=== PATIENT | female | born 1970 | race Caucasian/White ===

== ENCOUNTER 2017-08-24 08:24 | Inpatient (IN) | payer BC, OTHER ==
[2017-08-24 10:24] LABS: ADD MAN DIFF? NO
[2017-08-24 10:28] LABS: WHITE BLOOD COUNT 15.1 10^3/ul (4.8-10.8)
[2017-08-24 10:28] LABS: BASOPHIL # 0.1 10^3/ul (0.0-0.1); BASOPHILS % 0.3 % (0.0-2.0); EOSINOPHILS % 0.3 % (0.0-7.0); HEMATOCRIT 28.3 % (37.0-47.0); HEMOGLOBIN 9.8 g/dl (12.0-16.0); LYMPHOCYTES # 1.2 10^3/ul (0.8-2.9); LYMPHOCYTES % 7.6 % (15.0-51.0); MEAN CORPUSCULAR HEMOGLOBIN 36.7 pg (29.0-33.0); MEAN CORPUSCULAR HGB CONC 34.6 g/dl (32.0-37.0); MEAN PLATELET VOLUME 9.4 fl (7.4-10.4); MONOCYTE # 0.9 10^3/ul (0.3-0.9); MONOCYTES % 5.9 % (0.0-11.0); NEUTROPHIL # 12.9 10^3/ul (1.6-7.5); NEUTROPHILS % 85.3 % (39.0-77.0); PLATELET COUNT 471 10^3/UL (140-415); RED BLOOD COUNT 2.67 10^6/ul (4.20-5.40); RED CELL DISTRIBUTION WIDTH 15.5 % (11.5-14.5)
[2017-08-24] MEDS: PANTOPRAZOLE 40 MG INJ IV (10:41)
[2017-08-24 10:46] LABS: ALANINE AMINOTRANSFERASE 50 IU/L (13-69); ALBUMIN 3.1 g/dl (3.3-4.9); ALBUMIN/GLOBULIN RATIO 0.81; ALKALINE PHOSPHATASE 302 IU/L (42-121); ANION GAP 15 (8-16); ASPARTATE AMINO TRANSFERASE 159 IU/L (15-46); BILIRUBIN,INDIRECT 1.6 mg/dl (0-1.1); BILIRUBIN,TOTAL 2.2 mg/dl (0.2-1.3); BLOOD UREA NITROGEN 4 mg/dl (7-20); CALCIUM 8.5 mg/dl (8.4-10.2); CARBON DIOXIDE 36 mmol/L (21-31); CHLORIDE 86 mmol/L (97-110); GLUCOSE 117 mg/dl (70-220); LIPASE 105 U/L (23-300); SODIUM 134 mmol/L (135-144); TOTAL PROTEIN 6.9 g/dl (6.1-8.1)
[2017-08-24 10:47] LABS: INR 1.09; PROTIME 14.3 Sec (11.9-14.9); PT RATIO 1.1
[2017-08-24 10:48] LABS: PARTIAL THROMBOPLASTIN TIME 34.2 Sec (25.0-35.0)
[2017-08-24 10:54] LABS: POTASSIUM 2.8 mmol/L (3.5-5.1)
[2017-08-24 11:16] LABS: ADD UMIC YES; UR AMORPHOUS CRYSTAL FEW /HPF (NONE SEEN); UR ASCORBIC ACID NEGATIVE (NEGATIVE); UR BACTERIA FEW /HPF (NONE SEEN); UR BILIRUBIN (Dip) 2+ mg/dL (NEGATIVE); UR BLOOD (Dip) 1+ mg/dL (NEGATIVE); UR CLARITY CLOUDY (CLEAR); UR COLOR AMBER (YELLOW); UR GLUCOSE (Dip) NEGATIVE (NEGATIVE); UR HYALINE CAST FEW /HPF (NONE SEEN); UR KETONES (Dip) TRACE mg/dL (NEGATIVE); UR LEUKOCYTE ESTERASE (Dip) TRACE Leu/ul (NEGATIVE); UR MUCUS MANY /HPF (NONE SEEN); UR NITRITE (Dip) NEGATIVE (NEGATIVE); UR RBC 9 /HPF (0-5); UR SPECIFIC GRAVITY (Dip) 1.016 (1.003-1.030); UR SQUAMOUS EPITHELIAL CELL MODERATE /HPF (FEW); UR TOTAL PROTEIN (Dip) 2+ mg/dl (NEGATIVE); UR UROBILINOGEN (Dip) 2+ mg/dL (NEGATIVE); UR WBC 39 /HPF (0-5)
[2017-08-24] MEDS: LIDOCAINE 1% (MPF) 5 ML VIAL (14:07)
[2017-08-24] MEDS: POTASSIUM CHLORIDE 20 MEQ POWDER FOR ORAL SOLN PO (14:14)
[2017-08-24] MEDS ORDERED: CEFOTAXIME 2 GM/50 ML (PMX) 50 ML IVPB (15:00)
[2017-08-24 15:25] LABS: FLD MN% 88.3 %; FLD PMN% 11.7 %; FLD RBC 0 /uL; FLD WBC 43 /cmm
[2017-08-24] MEDS ORDERED: ONDANSETRON 4 MG INJ IV ×2 (15:30→19:30)
[2017-08-24] MEDS ORDERED: ACETAMINOPHEN 325 MG TAB PO ×2 (15:30→19:30)
[2017-08-24] MEDS: CEFOTAXIME 2 GM/50 ML (PMX) 50 ML IVPB (15:33)
[2017-08-24 15:34] LABS: FLUID GLUCOSE 94 mg/dl; FLUID TYPE ASCITES FLUID
[2017-08-24 15:35] LABS: FLUID AMYLASE < 30 U/L; FLUID LD 209 U/L; FLUID TOTAL PROTEIN < 2.0 g/dl; FLUID TYPE ASCITES FLUID; FLUID TYPE ASCITIES FLUID
[2017-08-24 15:49] LABS: FLD CLARITY CLEAR; FLD COLOR YELLOW
[2017-08-24 15:49] LABS: FLD TYPE ASCITES
[2017-08-24] MEDS ORDERED: NACL 0.9% 3 ML SYG IV (19:30)
[2017-08-24] MEDS: HYDROCODONE/APAP (5/325) TAB PO (20:14)
[2017-08-24] MEDS: POTASSIUM CHLORIDE (SR) 20 MEQ TAB PO (20:14)
[2017-08-24] MEDS: CEFTRIAXONE 1 GM/50 ML (PMX) 50 ML IVPB (20:15)
[2017-08-24] MEDS: MIRTAZAPINE 15 MG TAB PO (20:24)
[2017-08-25 06:30] LABS: ADD MAN DIFF? NO; HAAIG REFLEX REFLEX FILED
[2017-08-25 06:38] LABS: BASOPHILS % 0.3 % (0.0-2.0); EOSINOPHILS # 0.1 10^3/ul (0.0-0.5); EOSINOPHILS % 0.8 % (0.0-7.0); HEMATOCRIT 25.5 % (37.0-47.0); HEMOGLOBIN 8.4 g/dl (12.0-16.0); LYMPHOCYTES # 1.7 10^3/ul (0.8-2.9); LYMPHOCYTES % 12.7 % (15.0-51.0); MEAN CORPUSCULAR HEMOGLOBIN 35.9 pg (29.0-33.0); MEAN CORPUSCULAR HGB CONC 32.9 g/dl (32.0-37.0); MEAN PLATELET VOLUME 9.6 fl (7.4-10.4); MONOCYTE # 0.8 10^3/ul (0.3-0.9); MONOCYTES % 6.1 % (0.0-11.0); NEUTROPHIL # 10.5 10^3/ul (1.6-7.5); NEUTROPHILS % 79.3 % (39.0-77.0); PLATELET COUNT 402 10^3/UL (140-415); RED BLOOD COUNT 2.34 10^6/ul (4.20-5.40); RED CELL DISTRIBUTION WIDTH 15.9 % (11.5-14.5)
[2017-08-25 06:38] LABS: WHITE BLOOD COUNT 13.3 10^3/ul (4.8-10.8)
[2017-08-25 06:57] LABS: ALANINE AMINOTRANSFERASE 47 IU/L (13-69); ALBUMIN 2.4 g/dl (3.3-4.9); ALKALINE PHOSPHATASE 226 IU/L (42-121); ANION GAP 11 (8-16); ASPARTATE AMINO TRANSFERASE 153 IU/L (15-46); BILIRUBIN,INDIRECT 0.8 mg/dl (0-1.1); BLOOD UREA NITROGEN 5 mg/dl (7-20); CALCIUM 8.8 mg/dl (8.4-10.2); CARBON DIOXIDE 38 mmol/L (21-31); CHLORIDE 92 mmol/L (97-110); CREATININE 0.54 mg/dl (0.44-1.00); GLUCOSE 96 mg/dl (70-220); MAGNESIUM 1.4 mg/dl (1.7-2.5); PHOSPHORUS 2.9 mg/dl (2.5-4.9); POTASSIUM 3.9 mmol/L (3.5-5.1); SODIUM 137 mmol/L (135-144); TOTAL PROTEIN 5.8 g/dl (6.1-8.1)
[2017-08-25 07:27] LABS: HEPATITIS B SURFACE ANTIGEN NEGATIVE (NEGATIVE)
[2017-08-25 07:46] LABS: HEPATITIS B CORE ANTIBODY NEGATIVE (NEGATIVE); HEPATITIS C VIRAL ANTIBODY NEGATIVE (NEGATIVE)
[2017-08-25 07:49] LABS: HEMOGLOBIN A1C 4.5 % (0-5.9)
[2017-08-25] MEDS ORDERED: VANCOMYCIN IV PER PHARMACY XX (11:00)
[2017-08-25] MEDS: DOCUSATE SODIUM 100 MG CAP PO ×2 (12:21→20:53)
[2017-08-25] MEDS: MAGNESIUM SULFATE 2 GM/50 ML 50 ML IVPB (12:22)
[2017-08-25] MEDS: BISACODYL (EC) 5 MG TAB PO (12:22)
[2017-08-25] MEDS: morphine 2 MG INJ IV ×2 (12:30→19:40)
[2017-08-25] MEDS: VANCOMYCIN 1.5 GM in SOD CHLORIDE 0.9% 250 ML IVPB (14:15)
[2017-08-25] MEDS ORDERED: POLYETHYLENE GLYCOL 17 GM PACKET PO (14:30)
[2017-08-25] MEDS: CEFTRIAXONE 1 GM/50 ML (PMX) 50 ML IVPB (19:40)
[2017-08-25] MEDS: MIRTAZAPINE 15 MG TAB PO (20:53)
[2017-08-26] MEDS: VANCOMYCIN 1 GM 250 ML IVPB ×2 (00:58→12:36)
[2017-08-26 05:47] LABS: ADD MAN DIFF? NO
[2017-08-26 05:54] LABS: WHITE BLOOD COUNT 14.5 10^3/ul (4.8-10.8)
[2017-08-26 05:54] LABS: BASOPHIL # 0.1 10^3/ul (0.0-0.1); BASOPHILS % 0.3 % (0.0-2.0); EOSINOPHILS # 0.1 10^3/ul (0.0-0.5); EOSINOPHILS % 0.8 % (0.0-7.0); HEMATOCRIT 25.9 % (37.0-47.0); HEMOGLOBIN 8.6 g/dl (12.0-16.0); LYMPHOCYTES # 1.5 10^3/ul (0.8-2.9); LYMPHOCYTES % 10.4 % (15.0-51.0); MEAN CORPUSCULAR HEMOGLOBIN 36.3 pg (29.0-33.0); MEAN CORPUSCULAR HGB CONC 33.2 g/dl (32.0-37.0); MEAN CORPUSCULAR VOLUME 109.3 fl (82.0-101.0); MEAN PLATELET VOLUME 9.6 fl (7.4-10.4); MONOCYTE # 0.8 10^3/ul (0.3-0.9); MONOCYTES % 5.4 % (0.0-11.0); NEUTROPHIL # 11.9 10^3/ul (1.6-7.5); NEUTROPHILS % 81.8 % (39.0-77.0); PLATELET COUNT 392 10^3/UL (140-415); RED BLOOD COUNT 2.37 10^6/ul (4.20-5.40); RED CELL DISTRIBUTION WIDTH 16.1 % (11.5-14.5)
[2017-08-26 07:21] LABS: ALANINE AMINOTRANSFERASE 45 IU/L (13-69); ALBUMIN 2.4 g/dl (3.3-4.9); ALBUMIN/GLOBULIN RATIO 0.75; ALKALINE PHOSPHATASE 233 IU/L (42-121); ANION GAP 11 (8-16); ASPARTATE AMINO TRANSFERASE 172 IU/L (15-46); BILIRUBIN,INDIRECT 0.5 mg/dl (0-1.1); BILIRUBIN,TOTAL 0.5 mg/dl (0.2-1.3); BLOOD UREA NITROGEN 4 mg/dl (7-20); CALCIUM 8.3 mg/dl (8.4-10.2); CARBON DIOXIDE 34 mmol/L (21-31); CHLORIDE 92 mmol/L (97-110); CREATININE 0.57 mg/dl (0.44-1.00); GLUCOSE 98 mg/dl (70-220); MAGNESIUM 1.8 mg/dl (1.7-2.5); POTASSIUM 3.8 mmol/L (3.5-5.1); SODIUM 133 mmol/L (135-144); TOTAL PROTEIN 5.6 g/dl (6.1-8.1)
[2017-08-26] MEDS: INFLUENZA VIRUS VACCINE 0.5 ML SYG IM* (09:10)
[2017-08-26] MEDS: BISACODYL (EC) 5 MG TAB PO (09:11)
[2017-08-26] MEDS: DOCUSATE SODIUM 100 MG CAP PO ×2 (09:11→20:20)
[2017-08-26] MEDS: morphine 2 MG INJ IV (10:26)
[2017-08-26] MEDS: morphine LIQ (10 MG/5 ML) CUP PO (20:20)
[2017-08-26] MEDS: CEFTRIAXONE 1 GM/50 ML (PMX) 50 ML IVPB (20:21)
[2017-08-26] MEDS: MIRTAZAPINE 15 MG TAB PO (21:20)
[2017-08-27 00:49] LABS: VANCOMYCIN,TROUGH 12.9 ug/ml (10.0-20.0)
[2017-08-27] MEDS: VANCOMYCIN 1 GM 250 ML IVPB ×2 (00:57→13:11)
[2017-08-27] MEDS: morphine LIQ (10 MG/5 ML) CUP PO ×3 (02:50→18:49)
[2017-08-27 05:43] LABS: ADD MAN DIFF? NO
[2017-08-27 05:47] LABS: BASOPHIL # 0.1 10^3/ul (0.0-0.1); BASOPHILS % 0.3 % (0.0-2.0); EOSINOPHILS # 0.2 10^3/ul (0.0-0.5); EOSINOPHILS % 0.8 % (0.0-7.0); HEMATOCRIT 27.3 % (37.0-47.0); LYMPHOCYTES # 1.9 10^3/ul (0.8-2.9); LYMPHOCYTES % 10.3 % (15.0-51.0); MEAN CORPUSCULAR HEMOGLOBIN 35.9 pg (29.0-33.0); MEAN CORPUSCULAR VOLUME 108.8 fl (82.0-101.0); MEAN PLATELET VOLUME 9.6 fl (7.4-10.4); MONOCYTE # 1.3 10^3/ul (0.3-0.9); MONOCYTES % 7.2 % (0.0-11.0); NEUTROPHIL # 14.7 10^3/ul (1.6-7.5); NEUTROPHILS % 80.3 % (39.0-77.0); PLATELET COUNT 432 10^3/UL (140-415); RED BLOOD COUNT 2.51 10^6/ul (4.20-5.40); RED CELL DISTRIBUTION WIDTH 16.3 % (11.5-14.5)
[2017-08-27 05:47] LABS: WHITE BLOOD COUNT 18.4 10^3/ul (4.8-10.8)
[2017-08-27 06:24] LABS: ALANINE AMINOTRANSFERASE 41 IU/L (13-69); ALBUMIN 2.4 g/dl (3.3-4.9); ALBUMIN/GLOBULIN RATIO 0.72; ALKALINE PHOSPHATASE 240 IU/L (42-121); ANION GAP 10 (8-16); ASPARTATE AMINO TRANSFERASE 176 IU/L (15-46); BILIRUBIN,INDIRECT 0.6 mg/dl (0-1.1); BILIRUBIN,TOTAL 0.9 mg/dl (0.2-1.3); BLOOD UREA NITROGEN 4 mg/dl (7-20); CALCIUM 8.3 mg/dl (8.4-10.2); CARBON DIOXIDE 34 mmol/L (21-31); CHLORIDE 94 mmol/L (97-110); CREATININE 0.63 mg/dl (0.44-1.00); GLUCOSE 95 mg/dl (70-220); POTASSIUM 3.8 mmol/L (3.5-5.1); SODIUM 134 mmol/L (135-144); TOTAL PROTEIN 5.7 g/dl (6.1-8.1)
[2017-08-27] MEDS: BISACODYL (EC) 5 MG TAB PO (09:17)
[2017-08-27] MEDS: DOCUSATE SODIUM 100 MG CAP PO ×2 (09:17→21:00)
[2017-08-27] MEDS: CEFTRIAXONE 1 GM/50 ML (PMX) 50 ML IVPB (20:00)
[2017-08-27] MEDS: MIRTAZAPINE 15 MG TAB PO (21:06)
[2017-08-28] MEDS: VANCOMYCIN 1 GM 250 ML IVPB ×2 (01:00→12:46)
[2017-08-28 07:41] LABS: ADD MAN DIFF? NO
[2017-08-28 07:49] LABS: BASOPHIL # 0.1 10^3/ul (0.0-0.1); BASOPHILS % 0.4 % (0.0-2.0); EOSINOPHILS # 0.1 10^3/ul (0.0-0.5); EOSINOPHILS % 0.6 % (0.0-7.0); HEMATOCRIT 28.6 % (37.0-47.0); HEMOGLOBIN 9.4 g/dl (12.0-16.0); LYMPHOCYTES # 1.6 10^3/ul (0.8-2.9); LYMPHOCYTES % 9.9 % (15.0-51.0); MEAN CORPUSCULAR HEMOGLOBIN 36.4 pg (29.0-33.0); MEAN CORPUSCULAR HGB CONC 32.9 g/dl (32.0-37.0); MEAN CORPUSCULAR VOLUME 110.9 fl (82.0-101.0); MEAN PLATELET VOLUME 9.5 fl (7.4-10.4); MONOCYTE # 1.4 10^3/ul (0.3-0.9); MONOCYTES % 8.4 % (0.0-11.0); NEUTROPHIL # 13.2 10^3/ul (1.6-7.5); NEUTROPHILS % 79.7 % (39.0-77.0); PLATELET COUNT 407 10^3/UL (140-415); RED BLOOD COUNT 2.58 10^6/ul (4.20-5.40); RED CELL DISTRIBUTION WIDTH 17.2 % (11.5-14.5)
[2017-08-28 07:49] LABS: WHITE BLOOD COUNT 16.5 10^3/ul (4.8-10.8)
[2017-08-28] MEDS: BISACODYL (EC) 5 MG TAB PO (09:47)
[2017-08-28] MEDS: DOCUSATE SODIUM 100 MG CAP PO (09:47)
[2017-08-28] MEDS: morphine LIQ (10 MG/5 ML) CUP PO (09:48)
[2017-08-28] MEDS: CLINDAMYCIN 300 MG CAP PO (12:16)
== END 2017-08-28 13:45 | disposition home or self-care (01) | DRG 433 ==
LOC: E/R 08:24 → PP2 15:02
PROC: 0W9G3ZZ Drainage of Peritoneal Cavity, Percutaneous Approach (ICD-10-PCS; principal; 2017-08-25)
DX: K70.31 Alcoholic cirrhosis of liver with ascites (principal); N39.0 Urinary tract infection, site not specified; R78.81 Bacteremia; E87.1 Hypo-osmolality and hyponatremia; Z72.89 Other problems related to lifestyle; D63.8 Anemia in other chronic diseases classified elsewhere; E87.6 Hypokalemia; F32.9 Major depressive disorder, single episode, unspecified; B95.7 Other staphylococcus as the cause of diseases classified elsewhere
CPT/HCPCS: 36415; 71045; 76705; 80053; 80202; 81001; 82150; 82607; 82746; 82945; 83036; 83615; 83690; 83735; 84100; 84157; 85025; 85610; 85730; 86704; 86709; 86803; 86850; 86900; 86901; 87040; 87070; 87086; 87102; 87116; 87340; 89051; 93005; 93306; 96374; 96375; 99285-25

== ENCOUNTER 2017-08-29 14:03 | Emergency (ER) | payer BC ==
[2017-08-29] MEDS: IBUPROFEN 600 MG TAB PO (17:05)
== END 2017-08-29 17:35 | disposition home or self-care (01) ==
LOC: E/R 14:03
DX: K70.31 Alcoholic cirrhosis of liver with ascites (principal); I10 Essential (primary) hypertension; F17.210 Nicotine dependence, cigarettes, uncomplicated; R40.2142 Coma scale, eyes open, spontaneous, at arrival to emergency department; R40.2252 Coma scale, best verbal response, oriented, at arrival to emergency department; R40.2362 Coma scale, best motor response, obeys commands, at arrival to emergency department
CPT/HCPCS: 99283; Z7502

== ENCOUNTER 2017-09-01 11:41 | Emergency (ER) | payer BC ==
[2017-09-01] MEDS: LIDOCAINE 1% (MPF) 5 ML VIAL (17:48)
== END 2017-09-01 17:39 | disposition home or self-care (01) ==
LOC: E/R 11:41
DX: R18.8 Other ascites (principal); I10 Essential (primary) hypertension; Z87.891 Personal history of nicotine dependence
CPT/HCPCS: 99285-25; Z7502

== ENCOUNTER 2017-09-09 22:01 | Inpatient (IN) | payer BC ==
[2017-09-09] MEDS ORDERED: DOCUSATE SODIUM 100 MG CAP PO (23:30)
[2017-09-09] MEDS ORDERED: BISACODYL (EC) 5 MG TAB PO (23:30)
[2017-09-09] MEDS ORDERED: NACL 0.9% 3 ML SYG IV (23:30)
[2017-09-10 00:56] LABS: ADD MAN DIFF? NO
[2017-09-10 00:59] LABS: BASOPHIL # 0.1 10^3/ul (0.0-0.1); BASOPHILS % 0.3 % (0.0-2.0); EOSINOPHILS # 0.2 10^3/ul (0.0-0.5); HEMATOCRIT 20.5 % (37.0-47.0); LYMPHOCYTES # 1.8 10^3/ul (0.8-2.9); LYMPHOCYTES % 7.7 % (15.0-51.0); MEAN CORPUSCULAR HEMOGLOBIN 35.2 pg (29.0-33.0); MEAN CORPUSCULAR HGB CONC 34.1 g/dl (32.0-37.0); MEAN PLATELET VOLUME 9.4 fl (7.4-10.4); MONOCYTE # 1.5 10^3/ul (0.3-0.9); MONOCYTES % 6.4 % (0.0-11.0); NEUTROPHILS % 83.2 % (39.0-77.0); PLATELET COUNT 604 10^3/UL (140-415); RED BLOOD COUNT 1.99 10^6/ul (4.20-5.40); RED CELL DISTRIBUTION WIDTH 15.7 % (11.5-14.5)
[2017-09-10 00:59] LABS: WHITE BLOOD COUNT 22.9 10^3/ul (4.8-10.8)
[2017-09-10 01:16] LABS: LACTIC ACID 1.6 mmol/L (0.5-2.0)
[2017-09-10 01:17] LABS: ALANINE AMINOTRANSFERASE 44 IU/L (13-69); ALBUMIN 2.6 g/dl (3.3-4.9); ALBUMIN/GLOBULIN RATIO 0.78; ALKALINE PHOSPHATASE 306 IU/L (42-121); ANION GAP 18 (8-16); ASPARTATE AMINO TRANSFERASE 183 IU/L (15-46); BILIRUBIN,INDIRECT 0.4 mg/dl (0-1.1); BILIRUBIN,TOTAL 0.6 mg/dl (0.2-1.3); BLOOD UREA NITROGEN 52 mg/dl (7-20); CALCIUM 8.3 mg/dl (8.4-10.2); CARBON DIOXIDE 27 mmol/L (21-31); CHLORIDE 89 mmol/L (97-110); CREATININE 4.13 mg/dl (0.44-1.00); GLUCOSE 115 mg/dl (70-220); POTASSIUM 4.4 mmol/L (3.5-5.1); SODIUM 130 mmol/L (135-144); TOTAL PROTEIN 5.9 g/dl (6.1-8.1)
[2017-09-10 01:30] LABS: INR 1.12; PROTIME 14.6 Sec (11.9-14.9); PT RATIO 1.1
[2017-09-10 01:31] LABS: PARTIAL THROMBOPLASTIN TIME 41.2 Sec (25.0-35.0)
[2017-09-10] MEDS: VANCOMYCIN 1.5 GM in SOD CHLORIDE 0.9% 250 ML IVPB (01:35)
[2017-09-10] MEDS: CEFOTAXIME 2 GM/50 ML (PMX) 50 ML IVPB (01:43)
[2017-09-10 01:45] LABS: AMMONIA 22 umol/l (9-30)
[2017-09-10] MEDS ORDERED: VANCOMYCIN IV PER PHARMACY XX ×2 (03:00)
[2017-09-10] MEDS ORDERED: LORAZEPAM 2 MG INJ IV (04:00)
[2017-09-10] MEDS: FUROSEMIDE 40 MG INJ IV (05:41)
[2017-09-10] MEDS: ALBUMIN HUMAN 25% 100 ML IV ×4 (05:43→21:30)
[2017-09-10 07:32] LABS: ADD UMIC YES; UR ASCORBIC ACID NEGATIVE (NEGATIVE); UR BACTERIA FEW /HPF (NONE SEEN); UR BILIRUBIN (Dip) NEGATIVE (NEGATIVE); UR BLOOD (Dip) 1+ mg/dL (NEGATIVE); UR CLARITY SLIGHTLY CLOUDY (CLEAR); UR COLOR AMBER (YELLOW); UR GLUCOSE (Dip) 1+ mg/dL (NEGATIVE); UR KETONES (Dip) NEGATIVE (NEGATIVE); UR LEUKOCYTE ESTERASE (Dip) NEGATIVE Leu/ul (NEGATIVE); UR NITRITE (Dip) NEGATIVE (NEGATIVE); UR RBC 3 /HPF (0-5); UR SPECIFIC GRAVITY (Dip) 1.013 (1.003-1.030); UR TOTAL PROTEIN (Dip) NEGATIVE (NEGATIVE); UR UROBILINOGEN (Dip) NEGATIVE (NEGATIVE); UR WBC 15 /HPF (0-5)
[2017-09-10] MEDS: CEFOTAXIME 1 GM/50 ML (PMX) 50 ML IVPB ×2 (09:19→21:45)
[2017-09-10] MEDS: morphine 2 MG INJ IV ×4 (09:22→21:21)
[2017-09-10] MEDS: LIDOCAINE 1% (MDV) 10 ML INJ (11:59)
[2017-09-10] MEDS ORDERED: VANCOMYCIN 1 GM 250 ML IVPB (13:00)
[2017-09-10 13:23] LABS: ADD MAN DIFF? NO
[2017-09-10 13:25] LABS: BASOPHIL # 0.1 10^3/ul (0.0-0.1); BASOPHILS % 0.3 % (0.0-2.0); EOSINOPHILS # 0.2 10^3/ul (0.0-0.5); HEMATOCRIT 20.9 % (37.0-47.0); LYMPHOCYTES # 1.7 10^3/ul (0.8-2.9); LYMPHOCYTES % 8.7 % (15.0-51.0); MEAN CORPUSCULAR HEMOGLOBIN 34.8 pg (29.0-33.0); MEAN CORPUSCULAR HGB CONC 33.5 g/dl (32.0-37.0); MEAN PLATELET VOLUME 9.1 fl (7.4-10.4); MONOCYTE # 1.1 10^3/ul (0.3-0.9); MONOCYTES % 5.4 % (0.0-11.0); NEUTROPHIL # 16.7 10^3/ul (1.6-7.5); NEUTROPHILS % 83.2 % (39.0-77.0); PLATELET COUNT 595 10^3/UL (140-415); RED BLOOD COUNT 2.01 10^6/ul (4.20-5.40); RED CELL DISTRIBUTION WIDTH 15.3 % (11.5-14.5)
[2017-09-10 13:25] LABS: WHITE BLOOD COUNT 20.1 10^3/ul (4.8-10.8)
[2017-09-10 13:43] LABS: LACTIC ACID 1.8 mmol/L (0.5-2.0)
[2017-09-10 13:44] LABS: ALANINE AMINOTRANSFERASE 38 IU/L (13-69); ALBUMIN 2.7 g/dl (3.3-4.9); ALBUMIN/GLOBULIN RATIO 0.79; ALKALINE PHOSPHATASE 254 IU/L (42-121); ANION GAP 18 (8-16); ASPARTATE AMINO TRANSFERASE 153 IU/L (15-46); BILIRUBIN,INDIRECT 0.7 mg/dl (0-1.1); BLOOD UREA NITROGEN 50 mg/dl (7-20); CALCIUM 8.5 mg/dl (8.4-10.2); CARBON DIOXIDE 26 mmol/L (21-31); CHLORIDE 92 mmol/L (97-110); CREATININE 3.64 mg/dl (0.44-1.00); GLUCOSE 134 mg/dl (70-220); POTASSIUM 4.1 mmol/L (3.5-5.1); SODIUM 132 mmol/L (135-144); TOTAL PROTEIN 6.1 g/dl (6.1-8.1)
[2017-09-10 13:48] LABS: ETHANOL < 10.0 mg/dl
[2017-09-10 14:29] LABS: UR BACTERIA FEW /HPF (NONE SEEN); UR RBC > 182 /HPF (0-5); UR WBC 33 /HPF (0-5)
[2017-09-10 14:33] LABS: CREATININE,URINE RANDOM 141.43 mg/dl (20-320)
[2017-09-10 14:34] LABS: SODIUM,URINE RANDOM < 13 mmol/L (30-90)
[2017-09-10 14:48] LABS: ADD UMIC YES; UR ASCORBIC ACID NEGATIVE (NEGATIVE); UR BILIRUBIN (Dip) NEGATIVE (NEGATIVE); UR BLOOD (Dip) 3+ mg/dL (NEGATIVE); UR CLARITY CLEAR (CLEAR); UR COLOR YELLOW (YELLOW); UR GLUCOSE (Dip) NEGATIVE (NEGATIVE); UR KETONES (Dip) NEGATIVE (NEGATIVE); UR LEUKOCYTE ESTERASE (Dip) NEGATIVE Leu/ul (NEGATIVE); UR NITRITE (Dip) NEGATIVE (NEGATIVE); UR SPECIFIC GRAVITY (Dip) 1.002 (1.003-1.030); UR TOTAL PROTEIN (Dip) NEGATIVE (NEGATIVE); UR UROBILINOGEN (Dip) NEGATIVE (NEGATIVE)
[2017-09-10 16:41] LABS: FOLATE 5.6 ng/ml (2.8-20.0)
[2017-09-10 16:52] LABS: FLD PMN% 7.9 %; FLD RBC 0 /uL; FLD WBC 38 /cmm
[2017-09-10 17:21] LABS: FLD CLARITY CLEAR; FLD COLOR YELLOW
[2017-09-10 17:21] LABS: FLD TYPE PARACENTHESIS
[2017-09-10 17:22] LABS: FLD MN% 92.1 %
[2017-09-10 19:19] LABS: ADD MAN DIFF? NO
[2017-09-10 19:20] LABS: BASOPHIL # 0.1 10^3/ul (0.0-0.1); BASOPHILS % 0.3 % (0.0-2.0); EOSINOPHILS # 0.3 10^3/ul (0.0-0.5); EOSINOPHILS % 1.3 % (0.0-7.0); LYMPHOCYTES % 10.6 % (15.0-51.0); MEAN CORPUSCULAR HEMOGLOBIN 35.1 pg (29.0-33.0); MEAN CORPUSCULAR VOLUME 103.1 fl (82.0-101.0); MEAN PLATELET VOLUME 8.9 fl (7.4-10.4); MONOCYTE # 1.1 10^3/ul (0.3-0.9); NEUTROPHIL # 15.1 10^3/ul (1.6-7.5); NEUTROPHILS % 80.5 % (39.0-77.0); PLATELET COUNT 563 10^3/UL (140-415); RED BLOOD COUNT 1.94 10^6/ul (4.20-5.40); RED CELL DISTRIBUTION WIDTH 15.6 % (11.5-14.5)
[2017-09-10 19:31] LABS: HEMOGLOBIN 6.8 g/dl (12.0-16.0)
[2017-09-10 19:32] LABS: WHITE BLOOD COUNT 18.7 10^3/ul (4.8-10.8)
[2017-09-10] MEDS: MIRTAZAPINE 15 MG TAB PO (21:20)
[2017-09-10 21:49] LABS: IMMEDIATE SPIN CROSSMATCH 1 1
[2017-09-11] MEDS: morphine 2 MG INJ IV ×3 (01:36→20:46)
[2017-09-11 03:51] LABS: ADD MAN DIFF? NO
[2017-09-11] MEDS: ALBUMIN HUMAN 25% 100 ML IV ×4 (04:08→20:45)
[2017-09-11 04:11] LABS: ABNORMAL IP MESSAGE 1; BASOPHIL # 0.1 10^3/ul (0.0-0.1); BASOPHILS % 0.5 % (0.0-2.0); EOSINOPHILS # 0.3 10^3/ul (0.0-0.5); EOSINOPHILS % 1.3 % (0.0-7.0); HEMATOCRIT 23.4 % (37.0-47.0); HEMOGLOBIN 8.3 g/dl (12.0-16.0); LYMPHOCYTES # 1.8 10^3/ul (0.8-2.9); LYMPHOCYTES % 8.8 % (15.0-51.0); MEAN CORPUSCULAR HEMOGLOBIN 34.4 pg (29.0-33.0); MEAN CORPUSCULAR HGB CONC 35.5 g/dl (32.0-37.0); MEAN CORPUSCULAR VOLUME 97.1 fl (82.0-101.0); MEAN PLATELET VOLUME 9.5 fl (7.4-10.4); MONOCYTE # 1.5 10^3/ul (0.3-0.9); MONOCYTES % 7.6 % (0.0-11.0); NEUTROPHIL # 16.2 10^3/ul (1.6-7.5); NEUTROPHILS % 80.7 % (39.0-77.0); PLATELET COUNT 546 10^3/UL (140-415); RED BLOOD COUNT 2.41 10^6/ul (4.20-5.40); RED CELL DISTRIBUTION WIDTH 18.2 % (11.5-14.5)
[2017-09-11 04:17] LABS: ANION GAP 20 (8-16); BLOOD UREA NITROGEN 47 mg/dl (7-20); CALCIUM 8.4 mg/dl (8.4-10.2); CARBON DIOXIDE 24 mmol/L (21-31); CHLORIDE 98 mmol/L (97-110); CREATININE 2.91 mg/dl (0.44-1.00); GLUCOSE 124 mg/dl (70-220); MAGNESIUM 1.6 mg/dl (1.7-2.5); PHOSPHORUS 5.6 mg/dl (2.5-4.9); POTASSIUM 3.5 mmol/L (3.5-5.1); SODIUM 138 mmol/L (135-144)
[2017-09-11 04:36] LABS: POSITIVE DIFF @See below
[2017-09-11 06:49] LABS: ADD MAN DIFF? NO
[2017-09-11 06:52] LABS: WHITE BLOOD COUNT 19.6 10^3/ul (4.8-10.8)
[2017-09-11 06:52] LABS: BASOPHIL # 0.1 10^3/ul (0.0-0.1); BASOPHILS % 0.5 % (0.0-2.0); EOSINOPHILS # 0.3 10^3/ul (0.0-0.5); EOSINOPHILS % 1.6 % (0.0-7.0); HEMATOCRIT 22.7 % (37.0-47.0); LYMPHOCYTES # 1.9 10^3/ul (0.8-2.9); LYMPHOCYTES % 9.6 % (15.0-51.0); MEAN CORPUSCULAR HEMOGLOBIN 35.1 pg (29.0-33.0); MEAN CORPUSCULAR HGB CONC 35.2 g/dl (32.0-37.0); MEAN CORPUSCULAR VOLUME 99.6 fl (82.0-101.0); MEAN PLATELET VOLUME 9.6 fl (7.4-10.4); MONOCYTE # 1.5 10^3/ul (0.3-0.9); MONOCYTES % 7.7 % (0.0-11.0); NEUTROPHIL # 15.6 10^3/ul (1.6-7.5); NEUTROPHILS % 79.4 % (39.0-77.0); PLATELET COUNT 505 10^3/UL (140-415); RED BLOOD COUNT 2.28 10^6/ul (4.20-5.40); RED CELL DISTRIBUTION WIDTH 18.6 % (11.5-14.5)
[2017-09-11] MEDS: MAGNESIUM SULFATE 2 GM/50 ML 50 ML IVPB (09:19)
[2017-09-11] MEDS: CEFOTAXIME 1 GM/50 ML (PMX) 50 ML IVPB (09:19)
[2017-09-11 19:01] LABS: HEPATITIS B SURFACE ANTIGEN NEGATIVE (NEGATIVE)
[2017-09-11 19:18] LABS: HEPATITIS B SURFACE ANTIBODY NEGATIVE (NEGATIVE)
[2017-09-11 19:19] LABS: HEPATITIS B CORE ANTIBODY NEGATIVE (NEGATIVE); HEPATITIS C VIRAL ANTIBODY NEGATIVE (NEGATIVE)
[2017-09-11 20:30] LABS: ALPHA FETOPROTEIN 2.68 IU/L (0.00-7.21)
[2017-09-11] MEDS: MIRTAZAPINE 15 MG TAB PO (20:46)
[2017-09-12] MEDS: ALBUMIN HUMAN 25% 100 ML IV ×3 (03:35→20:27)
[2017-09-12 05:47] LABS: ADD MAN DIFF? NO
[2017-09-12 05:52] LABS: WHITE BLOOD COUNT 24.7 10^3/ul (4.8-10.8)
[2017-09-12 05:52] LABS: ABNORMAL IP MESSAGE 1; BASOPHIL # 0.1 10^3/ul (0.0-0.1); BASOPHILS % 0.4 % (0.0-2.0); EOSINOPHILS # 0.2 10^3/ul (0.0-0.5); EOSINOPHILS % 0.9 % (0.0-7.0); HEMATOCRIT 24.2 % (37.0-47.0); HEMOGLOBIN 8.2 g/dl (12.0-16.0); LYMPHOCYTES # 3.3 10^3/ul (0.8-2.9); LYMPHOCYTES % 13.5 % (15.0-51.0); MEAN CORPUSCULAR HEMOGLOBIN 33.7 pg (29.0-33.0); MEAN CORPUSCULAR HGB CONC 33.9 g/dl (32.0-37.0); MEAN CORPUSCULAR VOLUME 99.6 fl (82.0-101.0); MEAN PLATELET VOLUME 9.2 fl (7.4-10.4); MONOCYTE # 1.8 10^3/ul (0.3-0.9); MONOCYTES % 7.1 % (0.0-11.0); NEUTROPHIL # 18.9 10^3/ul (1.6-7.5); NEUTROPHILS % 76.6 % (39.0-77.0); PLATELET COUNT 522 10^3/UL (140-415); RED BLOOD COUNT 2.43 10^6/ul (4.20-5.40); RED CELL DISTRIBUTION WIDTH 18.6 % (11.5-14.5)
[2017-09-12 06:02] LABS: POSITIVE DIFF @See below
[2017-09-12 06:35] LABS: MAGNESIUM 1.9 mg/dl (1.7-2.5)
[2017-09-12 06:59] LABS: ALBUMIN/GLOBULIN RATIO 1.56; ANION GAP 21 (8-16)
[2017-09-12 07:00] LABS: ALANINE AMINOTRANSFERASE 24 IU/L (13-69); ALBUMIN 3.9 g/dl (3.3-4.9); ALKALINE PHOSPHATASE 170 IU/L (42-121); ASPARTATE AMINO TRANSFERASE 106 IU/L (15-46); BILIRUBIN,INDIRECT 0.9 mg/dl (0-1.1); BILIRUBIN,TOTAL 1.1 mg/dl (0.2-1.3); BLOOD UREA NITROGEN 39 mg/dl (7-20); CALCIUM 9.4 mg/dl (8.4-10.2); CARBON DIOXIDE 26 mmol/L (21-31); CHLORIDE 98 mmol/L (97-110); CREATININE 1.85 mg/dl (0.44-1.00); GLUCOSE 128 mg/dl (70-220); POTASSIUM 3.6 mmol/L (3.5-5.1); SODIUM 141 mmol/L (135-144); TOTAL PROTEIN 6.4 g/dl (6.1-8.1)
[2017-09-12] MEDS: ENOXAPARIN 30 MG/0.3 ML SYG SC (09:04)
[2017-09-12] MEDS: morphine 2 MG INJ IV (12:40)
[2017-09-12 14:16] LABS: CREATININE, RANDOM URINE 160 mg/dL (20-320); MICROALBUMIN 6.5 mg/dL; MICROALBUMIN/CREATININE RATIO 41 (<30)
[2017-09-12] MEDS: MIRTAZAPINE 15 MG TAB PO (20:27)
[2017-09-12] MEDS: morphine LIQ (10 MG/5 ML) CUP PO (20:28)
[2017-09-13] MEDS: ALBUMIN HUMAN 25% 100 ML IV ×3 (03:39→23:35)
[2017-09-13 05:15] LABS: ADD MAN DIFF? NO
[2017-09-13 05:21] LABS: ABNORMAL IP MESSAGE 1; BASOPHIL # 0.1 10^3/ul (0.0-0.1); BASOPHILS % 0.4 % (0.0-2.0); EOSINOPHILS # 0.4 10^3/ul (0.0-0.5); EOSINOPHILS % 1.9 % (0.0-7.0); HEMATOCRIT 22.1 % (37.0-47.0); HEMOGLOBIN 7.6 g/dl (12.0-16.0); LYMPHOCYTES # 1.9 10^3/ul (0.8-2.9); LYMPHOCYTES % 9.6 % (15.0-51.0); MEAN CORPUSCULAR HEMOGLOBIN 34.5 pg (29.0-33.0); MEAN CORPUSCULAR HGB CONC 34.4 g/dl (32.0-37.0); MEAN CORPUSCULAR VOLUME 100.5 fl (82.0-101.0); MONOCYTE # 1.6 10^3/ul (0.3-0.9); MONOCYTES % 7.7 % (0.0-11.0); NEUTROPHILS % 79.3 % (39.0-77.0); PLATELET COUNT 440 10^3/UL (140-415); RED CELL DISTRIBUTION WIDTH 18.2 % (11.5-14.5)
[2017-09-13 05:21] LABS: WHITE BLOOD COUNT 20.2 10^3/ul (4.8-10.8)
[2017-09-13 05:26] LABS: POSITIVE DIFF @See below
[2017-09-13 05:38] LABS: ANION GAP 17 (8-16); BLOOD UREA NITROGEN 33 mg/dl (7-20); CARBON DIOXIDE 28 mmol/L (21-31); CHLORIDE 101 mmol/L (97-110); CREATININE 1.34 mg/dl (0.44-1.00); GLUCOSE 101 mg/dl (70-220); MAGNESIUM 1.7 mg/dl (1.7-2.5); PHOSPHORUS 3.3 mg/dl (2.5-4.9); POTASSIUM 3.7 mmol/L (3.5-5.1); SODIUM 142 mmol/L (135-144)
[2017-09-13] MEDS: ENOXAPARIN 30 MG/0.3 ML SYG SC ×2 (09:00→13:08)
[2017-09-13] MEDS: morphine LIQ (10 MG/5 ML) CUP PO ×2 (13:36→21:46)
[2017-09-13] MEDS: MIRTAZAPINE 15 MG TAB PO (21:40)
[2017-09-14] MEDS: ACETAMINOPHEN 325 MG TAB PO (02:56)
[2017-09-14 05:32] LABS: ADD MAN DIFF? NO
[2017-09-14 05:35] LABS: WHITE BLOOD COUNT 18.5 10^3/ul (4.8-10.8)
[2017-09-14 05:35] LABS: BASOPHIL # 0.1 10^3/ul (0.0-0.1); BASOPHILS % 0.5 % (0.0-2.0); EOSINOPHILS # 0.3 10^3/ul (0.0-0.5); EOSINOPHILS % 1.6 % (0.0-7.0); HEMATOCRIT 23.7 % (37.0-47.0); HEMOGLOBIN 7.8 g/dl (12.0-16.0); LYMPHOCYTES # 1.6 10^3/ul (0.8-2.9); LYMPHOCYTES % 8.6 % (15.0-51.0); MEAN CORPUSCULAR HEMOGLOBIN 33.3 pg (29.0-33.0); MEAN CORPUSCULAR HGB CONC 32.9 g/dl (32.0-37.0); MEAN CORPUSCULAR VOLUME 101.3 fl (82.0-101.0); MEAN PLATELET VOLUME 8.9 fl (7.4-10.4); MONOCYTE # 1.4 10^3/ul (0.3-0.9); MONOCYTES % 7.6 % (0.0-11.0); NEUTROPHIL # 14.9 10^3/ul (1.6-7.5); NEUTROPHILS % 80.7 % (39.0-77.0); PLATELET COUNT 406 10^3/UL (140-415); RED BLOOD COUNT 2.34 10^6/ul (4.20-5.40); RED CELL DISTRIBUTION WIDTH 17.3 % (11.5-14.5)
[2017-09-14] MEDS: ALBUMIN HUMAN 25% 100 ML IV (06:48)
[2017-09-14] MEDS: ENOXAPARIN 30 MG/0.3 ML SYG SC (09:14)
[2017-09-14 10:24] LABS: ANION GAP 17 (8-16); BLOOD UREA NITROGEN 29 mg/dl (7-20); CALCIUM 9.3 mg/dl (8.4-10.2); CARBON DIOXIDE 24 mmol/L (21-31); CHLORIDE 101 mmol/L (97-110); CREATININE 1.34 mg/dl (0.44-1.00); GLUCOSE 114 mg/dl (70-220); POTASSIUM 3.8 mmol/L (3.5-5.1); SODIUM 138 mmol/L (135-144)
[2017-09-14] MEDS: morphine LIQ (10 MG/5 ML) CUP PO ×2 (11:12→20:25)
[2017-09-14] MEDS: SPIRONOLACTONE 25 MG TAB PO ×2 (13:30→18:12)
[2017-09-14] MEDS: FUROSEMIDE 20 MG TAB PO (18:12)
[2017-09-14] MEDS: MIRTAZAPINE 15 MG TAB PO (20:16)
[2017-09-14 20:37] LABS: VITAMIN B1 (THIAMINE) 222 nmol/L (78-185)
[2017-09-15] MEDS ORDERED: VANCOMYCIN IV PER PHARMACY XX (02:30)
[2017-09-15] MEDS ORDERED: PIPER-TAZO 3.375 GM IV (PMX) 100 ML (02:39)
[2017-09-15] MEDS: ACETAMINOPHEN 325 MG TAB PO ×2 (02:44→14:31)
[2017-09-15 03:32] LABS: LACTIC ACID 0.8 mmol/L (0.5-2.0)
[2017-09-15] MEDS: PIPER-TAZO 3.375 GM IV (PMX) 100 ML IVPB ×4 (03:36→23:47)
[2017-09-15] MEDS: FUROSEMIDE 20 MG TAB PO ×2 (05:59→17:25)
[2017-09-15] MEDS: VANCOMYCIN 1.5 GM in SOD CHLORIDE 0.9% 250 ML IVPB (08:02)
[2017-09-15] MEDS: SPIRONOLACTONE 25 MG TAB PO (08:33)
[2017-09-15] MEDS: ENOXAPARIN 30 MG/0.3 ML SYG SC (08:34)
[2017-09-15] MEDS: morphine LIQ (10 MG/5 ML) CUP PO ×2 (08:42→14:46)
[2017-09-15 10:37] LABS: ADD UMIC YES; UR ASCORBIC ACID NEGATIVE (NEGATIVE); UR BILIRUBIN (Dip) NEGATIVE (NEGATIVE); UR BLOOD (Dip) 1+ mg/dL (NEGATIVE); UR BUDDING YEAST MANY /HPF (NONE SEEN); UR CLARITY CLOUDY (CLEAR); UR COLOR AMBER (YELLOW); UR GLUCOSE (Dip) NEGATIVE (NEGATIVE); UR KETONES (Dip) NEGATIVE (NEGATIVE); UR LEUKOCYTE ESTERASE (Dip) TRACE Leu/ul (NEGATIVE); UR NITRITE (Dip) NEGATIVE (NEGATIVE); UR RBC 11 /HPF (0-5); UR SPECIFIC GRAVITY (Dip) 1.014 (1.003-1.030); UR SQUAMOUS EPITHELIAL CELL MANY /HPF (FEW); UR TOTAL PROTEIN (Dip) NEGATIVE (NEGATIVE); UR UROBILINOGEN (Dip) NEGATIVE (NEGATIVE); UR WBC 20 /HPF (0-5)
[2017-09-15] MEDS: ONDANSETRON 4 MG INJ IV (11:38)
[2017-09-15] MEDS ORDERED: VANCOMYCIN 1 GM 250 ML IVPB (19:00)
[2017-09-15] MEDS: MIRTAZAPINE 15 MG TAB PO (21:12)
[2017-09-16] MEDS: morphine LIQ (10 MG/5 ML) CUP PO ×2 (00:58→23:53)
[2017-09-16 04:54] LABS: ADD MAN DIFF? NO
[2017-09-16 04:56] LABS: BASOPHIL # 0.1 10^3/ul (0.0-0.1); BASOPHILS % 0.3 % (0.0-2.0); EOSINOPHILS # 0.2 10^3/ul (0.0-0.5); EOSINOPHILS % 0.8 % (0.0-7.0); HEMATOCRIT 26.7 % (37.0-47.0); LYMPHOCYTES # 1.5 10^3/ul (0.8-2.9); LYMPHOCYTES % 7.1 % (15.0-51.0); MEAN CORPUSCULAR HEMOGLOBIN 34.2 pg (29.0-33.0); MEAN CORPUSCULAR HGB CONC 33.7 g/dl (32.0-37.0); MEAN CORPUSCULAR VOLUME 101.5 fl (82.0-101.0); MEAN PLATELET VOLUME 8.8 fl (7.4-10.4); MONOCYTE # 1.1 10^3/ul (0.3-0.9); NEUTROPHILS % 85.5 % (39.0-77.0); PLATELET COUNT 341 10^3/UL (140-415); RED BLOOD COUNT 2.63 10^6/ul (4.20-5.40); RED CELL DISTRIBUTION WIDTH 16.7 % (11.5-14.5)
[2017-09-16] MEDS: FUROSEMIDE 20 MG TAB PO (05:14)
[2017-09-16 05:27] LABS: ANION GAP 20 (8-16); BLOOD UREA NITROGEN 40 mg/dl (7-20); CALCIUM 9.1 mg/dl (8.4-10.2); CARBON DIOXIDE 22 mmol/L (21-31); CHLORIDE 99 mmol/L (97-110); CREATININE 2.22 mg/dl (0.44-1.00); GLUCOSE 107 mg/dl (70-220); MAGNESIUM 1.4 mg/dl (1.7-2.5); POTASSIUM 4.7 mmol/L (3.5-5.1); SODIUM 136 mmol/L (135-144)
[2017-09-16] MEDS: PIPER-TAZO 3.375 GM IV (PMX) 100 ML IVPB ×4 (05:27→23:46)
[2017-09-16] MEDS: VANCOMYCIN 1.5 GM in SOD CHLORIDE 0.9% 250 ML IVPB (09:03)
[2017-09-16] MEDS: ENOXAPARIN 30 MG/0.3 ML SYG SC (09:05)
[2017-09-16] MEDS: MAGNESIUM OXIDE 400 MG TAB PO ×2 (12:37→21:07)
[2017-09-16] MEDS: ACETAMINOPHEN 325 MG TAB PO (12:37)
[2017-09-16] MEDS: MAGNESIUM SULFATE 2 GM/50 ML 50 ML IVPB (12:38)
[2017-09-16] MEDS: SOD CHLORIDE 0.9% 500 ML IV (16:33)
[2017-09-16] MEDS: MIRTAZAPINE 15 MG TAB PO (21:07)
[2017-09-17] MEDS: DIPHENHYDRAMINE 50 MG INJ IV (05:07)
[2017-09-17] MEDS: METHYLPREDNISOLONE 125 MG INJ IV (05:07)
[2017-09-17] MEDS: ACETAMINOPHEN 325 MG TAB PO (05:20)
[2017-09-17] MEDS: MAGNESIUM OXIDE 400 MG TAB PO ×2 (09:19→20:25)
[2017-09-17] MEDS: CEFEPIME 1GM/50 ML (PMX) 50 ML IVPB ×2 (09:19→20:24)
[2017-09-17] MEDS: ENOXAPARIN 30 MG/0.3 ML SYG SC (09:30)
[2017-09-17 09:46] LABS: WHITE BLOOD COUNT 20.8 10^3/ul (4.8-10.8)
[2017-09-17 09:46] LABS: HEMATOCRIT 24.5 % (37.0-47.0); HEMOGLOBIN 8.3 g/dl (12.0-16.0); MEAN CORPUSCULAR HEMOGLOBIN 33.2 pg (29.0-33.0); MEAN CORPUSCULAR HGB CONC 33.9 g/dl (32.0-37.0); MEAN PLATELET VOLUME 9.2 fl (7.4-10.4); PLATELET COUNT 299 10^3/UL (140-415); RED CELL DISTRIBUTION WIDTH 16.7 % (11.5-14.5)
[2017-09-17 09:49] LABS: ADD MAN DIFF? YES; POSITIVE DIFF @See below
[2017-09-17 10:10] LABS: ANION GAP 22 (8-16); BLOOD UREA NITROGEN 51 mg/dl (7-20); CALCIUM 8.4 mg/dl (8.4-10.2); CARBON DIOXIDE 19 mmol/L (21-31); CHLORIDE 99 mmol/L (97-110); GLUCOSE 111 mg/dl (70-220); PHOSPHORUS 6.1 mg/dl (2.5-4.9); POTASSIUM 4.6 mmol/L (3.5-5.1); SODIUM 135 mmol/L (135-144)
[2017-09-17 10:13] LABS: VANCOMYCIN,RANDOM 23.5 ug/ml
[2017-09-17 10:23] LABS: INR 1.39; PROTIME 17.3 Sec (11.9-14.9); PT RATIO 1.4
[2017-09-17] MEDS: ALBUMIN HUMAN 25% 100 ML IV ×2 (10:24→18:32)
[2017-09-17 11:12] LABS: ANISOCYTOSIS 1+ (0-0); BAND NEUTROPHILS #M 2.4 10^3/ul (0.0-0.6); BAND NEUTROPHILS % (M) 12 % (0-4); GIANT THROMBO% (M) 2 % (0-0); HYPOCHROMASIA 1+ (0-0); MONOCYTE #M 0.2 10^3/ul (0.3-0.9); MONOCYTES % (M) 1 % (0-11); OVALOCYTES 1+ (0-0); PLATELET ESTIMATE NORMAL; POLYCHROMASIA 2+ (0-0); SEG NEUT #M 18.6 10^3/ul (1.6-7.5); SEGMENTED NEUTROPHILS (M) % 87 % (39-77); SMUDGE%M 2 % (0-0)
[2017-09-17] MEDS: LORATADINE 10 MG TAB PO (14:53)
[2017-09-17] MEDS: MEROPENEM 500MG/50 ML (PMX) 50 ML IVPB (20:24)
[2017-09-17] MEDS: MIRTAZAPINE 15 MG TAB PO (20:24)
[2017-09-18 02:08] LABS: ADD UMIC YES; UR ASCORBIC ACID NEGATIVE (NEGATIVE); UR BACTERIA FEW /HPF (NONE SEEN); UR BILIRUBIN (Dip) NEGATIVE (NEGATIVE); UR BLOOD (Dip) 1+ mg/dL (NEGATIVE); UR BUDDING YEAST MANY /HPF (NONE SEEN); UR CLARITY CLOUDY (CLEAR); UR COLOR YELLOW (YELLOW); UR GLUCOSE (Dip) NEGATIVE (NEGATIVE); UR KETONES (Dip) NEGATIVE (NEGATIVE); UR LEUKOCYTE ESTERASE (Dip) NEGATIVE Leu/ul (NEGATIVE); UR MUCUS FEW /HPF (NONE SEEN); UR NITRITE (Dip) NEGATIVE (NEGATIVE); UR NONSQUAMOUS EPITHELIAL CELL 1 /HPF (NONE SEEN); UR RBC 15 /HPF (0-5); UR SPECIFIC GRAVITY (Dip) 1.018 (1.003-1.030); UR SQUAMOUS EPITHELIAL CELL FEW /HPF (FEW); UR TOTAL PROTEIN (Dip) 1+ mg/dl (NEGATIVE); UR UROBILINOGEN (Dip) NEGATIVE (NEGATIVE); UR WBC 32 /HPF (0-5)
[2017-09-18] MEDS: ALBUMIN HUMAN 25% 100 ML IV ×3 (02:40→17:53)
[2017-09-18 03:11] LABS: SODIUM,URINE RANDOM < 13 mmol/L (30-90)
[2017-09-18 03:11] LABS: CREATININE,URINE RANDOM 112.74 mg/dl (20-320)
[2017-09-18] MEDS: ENOXAPARIN 30 MG/0.3 ML SYG SC (07:30)
[2017-09-18 08:08] LABS: ABNORMAL IP MESSAGE 1; HEMATOCRIT 24.2 % (37.0-47.0); HEMOGLOBIN 8.2 g/dl (12.0-16.0); MEAN CORPUSCULAR HEMOGLOBIN 33.1 pg (29.0-33.0); MEAN CORPUSCULAR HGB CONC 33.9 g/dl (32.0-37.0); MEAN CORPUSCULAR VOLUME 97.6 fl (82.0-101.0); MEAN PLATELET VOLUME 9.7 fl (7.4-10.4); PLATELET COUNT 258 10^3/UL (140-415); RED BLOOD COUNT 2.48 10^6/ul (4.20-5.40); RED CELL DISTRIBUTION WIDTH 16.4 % (11.5-14.5)
[2017-09-18 08:08] LABS: WHITE BLOOD COUNT 22.7 10^3/ul (4.8-10.8)
[2017-09-18 08:12] LABS: ADD MAN DIFF? YES; POSITIVE DIFF @See below
[2017-09-18 09:00] LABS: ANISOCYTOSIS 1+ (0-0); BAND NEUTROPHILS #M 9.9 10^3/ul (0.0-0.6); BAND NEUTROPHILS % (M) 44 % (0-4); EOSINOPHILS % (M) 2 % (0-7); LYMPHOCYTES #M 0.6 10^3/ul (0.8-2.9); LYMPHOCYTES % (M) 3 % (15-51); PLATELET ESTIMATE NORMAL; POLYCHROMASIA 3+ (0-0); REACTIVE LYMPHOCYTES #M 0.2 10^3/ul (0.0-0.0); REACTIVE LYMPHOCYTES% (M) 1 % (0-0); SEG NEUT #M 13.6 10^3/ul (1.6-7.5); SEGMENTED NEUTROPHILS (M) % 50 % (39-77); SMUDGE%M 8 % (0-0)
[2017-09-18 09:14] LABS: ANION GAP 19 (8-16); POTASSIUM 4.2 mmol/L (3.5-5.1); SODIUM 137 mmol/L (135-144)
[2017-09-18 09:15] LABS: BLOOD UREA NITROGEN 63 mg/dl (7-20); CALCIUM 8.8 mg/dl (8.4-10.2); CARBON DIOXIDE 23 mmol/L (21-31); CHLORIDE 99 mmol/L (97-110); CREATININE 2.44 mg/dl (0.44-1.00); GLUCOSE 115 mg/dl (70-220); MAGNESIUM 2.2 mg/dl (1.7-2.5)
[2017-09-18] MEDS: LIDOCAINE 1% (MDV) 10 ML INJ (09:37)
[2017-09-18] MEDS: MEROPENEM 500MG/50 ML (PMX) 50 ML IVPB (10:30)
[2017-09-18] MEDS: MAGNESIUM OXIDE 400 MG TAB PO ×2 (10:30→20:56)
[2017-09-18] MEDS: LORATADINE 10 MG TAB PO (10:30)
[2017-09-18] MEDS: morphine LIQ (10 MG/5 ML) CUP PO (10:38)
[2017-09-18 12:20] LABS: FLUID TOTAL PROTEIN 3.1 g/dl
[2017-09-18] MEDS: VANCOMYCIN 1.5 GM in SOD CHLORIDE 0.9% 250 ML IVPB (12:28)
[2017-09-18 13:06] LABS: FLD MN% 85.7 %; FLD PMN% 14.3 %; FLD RBC 0 /uL; FLD WBC 126 /cmm
[2017-09-18] MEDS: LACTULOSE 30ML CUP PO ×3 (14:04→20:57)
[2017-09-18 14:48] LABS: FLD CLARITY SLIGHTLY HAZY; FLD COLOR YELLOW
[2017-09-18 14:48] LABS: FLD TYPE PARACENTHESIS
[2017-09-18] MEDS ORDERED: LACTULOSE 30ML CUP PO (18:00)
[2017-09-18 18:56] LABS: AMMONIA < 9 umol/l (9-30)
[2017-09-18] MEDS: MEROPENEM 1 GM/50ML(PMX) 50 ML IVPB (20:56)
[2017-09-18] MEDS: MIRTAZAPINE 15 MG TAB PO (20:57)
[2017-09-18] MEDS: ACETAMINOPHEN 325 MG TAB PO (23:20)
[2017-09-18] MEDS: SOD CHLORIDE 0.9% 500 ML IV (23:28)
[2017-09-19] MEDS: ALBUMIN HUMAN 25% 100 ML IV ×2 (01:27→06:32)
[2017-09-19] MEDS: LACTULOSE 30ML CUP PO ×3 (06:00→21:20)
[2017-09-19] MEDS: ENOXAPARIN 30 MG/0.3 ML SYG SC (08:33)
[2017-09-19] MEDS: FUROSEMIDE 20 MG TAB PO (08:33)
[2017-09-19] MEDS: LORATADINE 10 MG TAB PO (08:34)
[2017-09-19] MEDS: METOPROLOL 25 MG TAB PO ×2 (08:34→20:50)
[2017-09-19] MEDS: SPIRONOLACTONE 25 MG TAB PO (08:34)
[2017-09-19] MEDS: MAGNESIUM OXIDE 400 MG TAB PO ×2 (08:34→20:44)
[2017-09-19] MEDS: CIPROFLOXACIN 500 MG TAB PO (08:34)
[2017-09-19] MEDS: MEROPENEM 1 GM/50ML(PMX) 50 ML IVPB ×2 (10:10→20:43)
[2017-09-19 14:31] LABS: CREATININE, RANDOM URINE 122 mg/dL (20-320); MICROALBUMIN 5.8 mg/dL; MICROALBUMIN/CREATININE RATIO 48 (<30)
[2017-09-19 14:55] LABS: ADD MAN DIFF? NO
[2017-09-19 14:58] LABS: WHITE BLOOD COUNT 19.6 10^3/ul (4.8-10.8)
[2017-09-19 14:58] LABS: BASOPHILS % 0.2 % (0.0-2.0); EOSINOPHILS # 0.8 10^3/ul (0.0-0.5); EOSINOPHILS % 3.8 % (0.0-7.0); HEMATOCRIT 23.8 % (37.0-47.0); HEMOGLOBIN 8.2 g/dl (12.0-16.0); LYMPHOCYTES # 1.8 10^3/ul (0.8-2.9); LYMPHOCYTES % 8.9 % (15.0-51.0); MEAN CORPUSCULAR HEMOGLOBIN 33.6 pg (29.0-33.0); MEAN CORPUSCULAR HGB CONC 34.5 g/dl (32.0-37.0); MEAN CORPUSCULAR VOLUME 97.5 fl (82.0-101.0); MEAN PLATELET VOLUME 9.5 fl (7.4-10.4); MONOCYTE # 0.6 10^3/ul (0.3-0.9); NEUTROPHIL # 16.3 10^3/ul (1.6-7.5); NEUTROPHILS % 83.4 % (39.0-77.0); PLATELET COUNT 193 10^3/UL (140-415); RED BLOOD COUNT 2.44 10^6/ul (4.20-5.40); RED CELL DISTRIBUTION WIDTH 16.9 % (11.5-14.5)
[2017-09-19 15:19] LABS: ANION GAP 20 (8-16); BLOOD UREA NITROGEN 66 mg/dl (7-20); CALCIUM 8.7 mg/dl (8.4-10.2); CARBON DIOXIDE 23 mmol/L (21-31); CHLORIDE 99 mmol/L (97-110); GLUCOSE 118 mg/dl (70-220); MAGNESIUM 2.2 mg/dl (1.7-2.5); PHOSPHORUS 3.5 mg/dl (2.5-4.9); POTASSIUM 3.7 mmol/L (3.5-5.1); SODIUM 138 mmol/L (135-144)
[2017-09-19 15:39] LABS: AMMONIA < 9 umol/l (9-30)
[2017-09-19] MEDS: MIRTAZAPINE 15 MG TAB PO (20:44)
[2017-09-20] MEDS: LACTULOSE 30ML CUP PO ×3 (00:57→14:25)
[2017-09-20 06:02] LABS: ADD MAN DIFF? NO
[2017-09-20 06:08] LABS: WHITE BLOOD COUNT 18.7 10^3/ul (4.8-10.8)
[2017-09-20 06:08] LABS: BASOPHILS % 0.2 % (0.0-2.0); EOSINOPHILS # 0.7 10^3/ul (0.0-0.5); EOSINOPHILS % 3.6 % (0.0-7.0); HEMATOCRIT 25.6 % (37.0-47.0); HEMOGLOBIN 8.5 g/dl (12.0-16.0); LYMPHOCYTES # 2.1 10^3/ul (0.8-2.9); LYMPHOCYTES % 11.1 % (15.0-51.0); MEAN CORPUSCULAR HEMOGLOBIN 31.8 pg (29.0-33.0); MEAN CORPUSCULAR HGB CONC 33.2 g/dl (32.0-37.0); MEAN CORPUSCULAR VOLUME 95.9 fl (82.0-101.0); MEAN PLATELET VOLUME 9.8 fl (7.4-10.4); MONOCYTE # 0.7 10^3/ul (0.3-0.9); MONOCYTES % 3.6 % (0.0-11.0); NEUTROPHIL # 15.1 10^3/ul (1.6-7.5); NEUTROPHILS % 80.9 % (39.0-77.0); PLATELET COUNT 212 10^3/UL (140-415); RED BLOOD COUNT 2.67 10^6/ul (4.20-5.40)
[2017-09-20 06:47] LABS: ANION GAP 19 (8-16); BLOOD UREA NITROGEN 66 mg/dl (7-20); CALCIUM 9.1 mg/dl (8.4-10.2); CARBON DIOXIDE 23 mmol/L (21-31); CHLORIDE 99 mmol/L (97-110); CREATININE 1.95 mg/dl (0.44-1.00); GLUCOSE 123 mg/dl (70-220); MAGNESIUM 2.4 mg/dl (1.7-2.5); PHOSPHORUS 2.8 mg/dl (2.5-4.9); POTASSIUM 3.2 mmol/L (3.5-5.1); SODIUM 138 mmol/L (135-144)
[2017-09-20] MEDS: ENOXAPARIN 30 MG/0.3 ML SYG SC (08:19)
[2017-09-20] MEDS: LORATADINE 10 MG TAB PO (08:20)
[2017-09-20] MEDS: MAGNESIUM OXIDE 400 MG TAB PO (08:20)
[2017-09-20] MEDS: METOPROLOL 25 MG TAB PO (08:20)
[2017-09-20] MEDS: MEROPENEM 1 GM/50ML(PMX) 50 ML IVPB (08:21)
[2017-09-20] MEDS: POTASSIUM CHLORIDE (SR) 20 MEQ TAB PO (09:35)
[2017-09-20] MEDS: VANCOMYCIN 1.5 GM in SOD CHLORIDE 0.9% 250 ML IVPB (11:14)
== END 2017-09-20 18:40 | disposition home health service (06) | DRG 871 ==
LOC: PP2 22:01 → TEL 09-16 17:00 → PP2 09-18 22:08
PROVIDERS: Family Medicine
PROC: 0W9G3ZX Drainage of Peritoneal Cavity, Percutaneous Approach, Diagnostic (ICD-10-PCS; principal; 2017-09-10)
PROC: 30233N1 Transfusion of Nonautologous Red Blood Cells into Peripheral Vein, Percutaneous Approach (ICD-10-PCS; 2017-09-10)
PROC: 0W9G3ZX Drainage of Peritoneal Cavity, Percutaneous Approach, Diagnostic (ICD-10-PCS; 2017-09-18)
DX: A41.9 Sepsis, unspecified organism (principal); K76.7 Hepatorenal syndrome; N17.9 Acute kidney failure, unspecified; E87.1 Hypo-osmolality and hyponatremia; N39.0 Urinary tract infection, site not specified; R65.20 Severe sepsis without septic shock; R16.0 Hepatomegaly, not elsewhere classified; E83.42 Hypomagnesemia; K70.31 Alcoholic cirrhosis of liver with ascites; K72.90 Hepatic failure, unspecified without coma; L27.0 Generalized skin eruption due to drugs and medicaments taken internally; T36.0X5A Adverse effect of penicillins, initial encounter; I10 Essential (primary) hypertension; D53.9 Nutritional anemia, unspecified; F32.9 Major depressive disorder, single episode, unspecified; R53.81 Other malaise; Z91.81 History of falling; Z87.891 Personal history of nicotine dependence
CPT/HCPCS: 36430; 71045; 74176; 76775; 78806; 80048; 80053; 80202; 80306; 81001; 81003; 82042; 82043; 82105; 82140; 82607; 82746; 83605; 83735; 84100; 84155; 84157; 84300; 84425; 84702; 85025; 85610; 85730; 86704; 86706; 86709; 86803; 86850; 86900; 86901; 86920; 87040; 87070; 87075; 87086; 87102; 87116; 87340; 88104; 88309; 89051; 97162

== ENCOUNTER 2017-10-08 09:22 | Inpatient (IN) | payer BC ==
[2017-10-08] MEDS: SOD CHLORIDE 0.9% 1,000 ML IV ×2 (10:44→11:23)
[2017-10-08 11:00] LABS: WHITE BLOOD COUNT 13.6 10^3/ul (4.8-10.8)
[2017-10-08 11:00] LABS: ABNORMAL IP MESSAGE 1; HEMATOCRIT 18.4 % (37.0-47.0); MEAN CORPUSCULAR HEMOGLOBIN 34.5 pg (29.0-33.0); MEAN CORPUSCULAR HGB CONC 36.4 g/dl (32.0-37.0); MEAN CORPUSCULAR VOLUME 94.8 fl (82.0-101.0); MEAN PLATELET VOLUME 9.5 fl (7.4-10.4); PLATELET COUNT 172 10^3/UL (140-415); RED BLOOD COUNT 1.94 10^6/ul (4.20-5.40); RED CELL DISTRIBUTION WIDTH 19.5 % (11.5-14.5)
[2017-10-08 11:01] LABS: POSITIVE DIFF @See below
[2017-10-08 11:02] LABS: ADD MAN DIFF? YES; HEMOGLOBIN 6.7 g/dl (12.0-16.0)
[2017-10-08 11:08] LABS: ALANINE AMINOTRANSFERASE 26 IU/L (13-69); ALBUMIN 2.8 g/dl (3.3-4.9); ALBUMIN/GLOBULIN RATIO 0.84; ALKALINE PHOSPHATASE 321 IU/L (42-121); ANION GAP 28 (8-16); ASPARTATE AMINO TRANSFERASE 20 IU/L (15-46); BILIRUBIN,INDIRECT 0.7 mg/dl (0-1.1); BILIRUBIN,TOTAL 2.4 mg/dl (0.2-1.3); BLOOD UREA NITROGEN 104 mg/dl (7-20); CALCIUM 8.2 mg/dl (8.4-10.2); CARBON DIOXIDE 12 mmol/L (21-31); CHLORIDE 98 mmol/L (97-110); GLUCOSE 107 mg/dl (70-220); LIPASE 42 U/L (23-300); POTASSIUM 4.5 mmol/L (3.5-5.1); SODIUM 133 mmol/L (135-144); TOTAL PROTEIN 6.1 g/dl (6.1-8.1)
[2017-10-08 11:20] LABS: CREATININE 11.86 mg/dl (0.44-1.00); TROPONIN-I < 0.012 ng/ml (0.00-0.12)
[2017-10-08 11:33] LABS: ANISOCYTOSIS 2+ (0-0); BAND NEUTROPHILS #M 1.6 10^3/ul (0.0-0.6); BAND NEUTROPHILS % (M) 12 % (0-4); BASOPHIL #M 0.1 10^3/ul (0.0-0.0); BASOPHILS % (M) 1 % (0-2); EOSINOPHILS % (M) 14 % (0-7); GIANT THROMBO% (M) 1 % (0-0); HYPOCHROMASIA 1+ (0-0); LYMPHOCYTES #M 1.6 10^3/ul (0.8-2.9); LYMPHOCYTES % (M) 12 % (15-51); MONOCYTE #M 1.2 10^3/ul (0.3-0.9); MONOCYTES % (M) 9 % (0-11); PLATELET ESTIMATE NORMAL; POLYCHROMASIA 3+ (0-0); SEG NEUT #M 7.6 10^3/ul (1.6-7.5); SEGMENTED NEUTROPHILS (M) % 54 % (39-77); SMUDGE%M 9 % (0-0)
[2017-10-08 12:31] LABS: INR 2.79; PROTIME 30.2 Sec (11.9-14.9); PT RATIO 2.4
[2017-10-08 12:42] LABS: PARTIAL THROMBOPLASTIN TIME 70.7 Sec (25.0-35.0)
[2017-10-08] MEDS ORDERED: METOCLOPRAMIDE 10 MG INJ IV (13:30)
[2017-10-08] MEDS ORDERED: ONDANSETRON 4 MG TAB PO (13:30)
[2017-10-08] MEDS ORDERED: NACL 0.9% 3 ML SYG IV (13:30)
[2017-10-08] MEDS: ACETAMINOPHEN 325 MG TAB PO (14:46)
[2017-10-08] MEDS: ONDANSETRON 4 MG INJ IV (14:46)
[2017-10-08] MEDS: morphine 2 MG INJ IV (15:11)
[2017-10-08 16:55] LABS: ETHANOL < 10.0 mg/dl
[2017-10-08] MEDS ORDERED: ALBUMIN HUMAN 25% 100 ML IV (17:00)
[2017-10-08] MEDS ORDERED: CEFTRIAXONE 1 GM/50 ML (PMX) 50 ML IVPB (17:00)
[2017-10-08] MEDS ORDERED: predniSOLONE (3 MG/ML) CUP PO (17:00)
[2017-10-08 17:09] LABS: IRON 81 ug/dl (35-150)
[2017-10-08 17:12] LABS: IMMEDIATE SPIN CROSSMATCH 1
[2017-10-08 17:19] LABS: % IRON SATURATION 68 % SAT (22-52); TOTAL IRON BINDING CAPACITY 119 ug/dl (241-421)
[2017-10-08 18:59] LABS: LITHIUM < 0.4 mmol/L (0.6-1.3)
[2017-10-08] MEDS: CEFTRIAXONE 1 GM/50 ML (PMX) 50 ML IVPB (22:38)
[2017-10-08] MEDS: ALBUMIN HUMAN 25% 100 ML IV (22:39)
[2017-10-08] MEDS: PANTOPRAZOLE IV 80 MG in SOD CHLORIDE 0.9% 100 ML IV ×2 (23:48→23:49)
[2017-10-09] MEDS: morphine 2 MG INJ IV ×3 (02:58→21:21)
[2017-10-09] MEDS: ALBUMIN HUMAN 25% 100 ML IV ×3 (02:59→14:34)
[2017-10-09] MEDS: PANTOPRAZOLE IV 80 MG in SOD CHLORIDE 0.9% 100 ML IV ×2 (03:59→13:20)
[2017-10-09] MEDS: OCTREOTIDE 1 MG in DEXTROSE 5% 95 ML IV ×3 (06:47→16:35)
[2017-10-09 08:41] LABS: ADD MAN DIFF? NO
[2017-10-09 08:49] LABS: WHITE BLOOD COUNT 10.7 10^3/ul (4.8-10.8)
[2017-10-09 08:49] LABS: ABNORMAL IP MESSAGE 1; BASOPHIL # 0.1 10^3/ul (0.0-0.1); BASOPHILS % 0.8 % (0.0-2.0); EOSINOPHILS # 2.4 10^3/ul (0.0-0.5); EOSINOPHILS % 22.4 % (0.0-7.0); HEMATOCRIT 24.2 % (37.0-47.0); HEMOGLOBIN 8.3 g/dl (12.0-16.0); LYMPHOCYTES # 1.5 10^3/ul (0.8-2.9); LYMPHOCYTES % 14.3 % (15.0-51.0); MEAN CORPUSCULAR HEMOGLOBIN 32.4 pg (29.0-33.0); MEAN CORPUSCULAR HGB CONC 34.3 g/dl (32.0-37.0); MEAN CORPUSCULAR VOLUME 94.5 fl (82.0-101.0); MONOCYTE # 0.9 10^3/ul (0.3-0.9); MONOCYTES % 8.5 % (0.0-11.0); NEUTROPHIL # 5.7 10^3/ul (1.6-7.5); NEUTROPHILS % 53.6 % (39.0-77.0); PLATELET COUNT 126 10^3/UL (140-415); RED BLOOD COUNT 2.56 10^6/ul (4.20-5.40); RED CELL DISTRIBUTION WIDTH 18.6 % (11.5-14.5)
[2017-10-09 08:53] LABS: POSITIVE DIFF @See below
[2017-10-09 09:08] LABS: ALANINE AMINOTRANSFERASE 17 IU/L (13-69); ALBUMIN 3.5 g/dl (3.3-4.9); ALBUMIN/GLOBULIN RATIO 1.02; ALKALINE PHOSPHATASE 290 IU/L (42-121); ANION GAP 28 (8-16); ASPARTATE AMINO TRANSFERASE 28 IU/L (15-46); BILIRUBIN,INDIRECT 0.7 mg/dl (0-1.1); BILIRUBIN,TOTAL 2.8 mg/dl (0.2-1.3); BLOOD UREA NITROGEN 102 mg/dl (7-20); CALCIUM 7.7 mg/dl (8.4-10.2); CARBON DIOXIDE 10 mmol/L (21-31); CHLORIDE 103 mmol/L (97-110); GLUCOSE 101 mg/dl (70-220); POTASSIUM 4.7 mmol/L (3.5-5.1); SODIUM 136 mmol/L (135-144); TOTAL PROTEIN 6.9 g/dl (6.1-8.1)
[2017-10-09 09:11] LABS: GAMMA GLUTAMYL TRANSPEPTIDASE 220 IU/L (0-50)
[2017-10-09 09:12] LABS: PHOSPHORUS 9.1 mg/dl (2.5-4.9)
[2017-10-09 09:18] LABS: CREATININE 11.83 mg/dl (0.44-1.00)
[2017-10-09 10:10] LABS: Allen Test ACCEPTAB; Arterial Base Excess -14.5 mmol/L (-3.0-3); Arterial Blood Gas Oxygen Sat 94.5 mmHG (95.0-98.0); Arterial COHb 0.3 % (0.0-3.0); Arterial Fraction of Oxyhgb 93.7 % (93.0-99.0); Arterial HCO3 11.4 mmol/L (22.0-26.0); Arterial MetHb 0.5 % (0.0-1.5); Arterial Total Hemglobin 9.6 g/dl (12.0-18.0); Arterial pCO2 26.9 mmhg (35-45); MODE ROOM AIR; Site Right Radial
[2017-10-09] MEDS: MIDODRINE 5 MG TAB PO ×2 (10:19→18:19)
[2017-10-09] MEDS: OCTREOTIDE 50 MCG INJ SC ×3 (10:25→22:21)
[2017-10-09 13:28] LABS: CREATININE,URINE RANDOM 269.11 mg/dl (20-320)
[2017-10-09 13:28] LABS: SODIUM,URINE RANDOM 28 mmol/L (30-90)
[2017-10-09 13:31] LABS: ADD UMIC YES; UR AMORPHOUS CRYSTAL FEW /HPF (NONE SEEN); UR ASCORBIC ACID NEGATIVE (NEGATIVE); UR BACTERIA MANY /HPF (NONE SEEN); UR BILIRUBIN (Dip) NEGATIVE (NEGATIVE); UR BLOOD (Dip) 2+ mg/dL (NEGATIVE); UR CLARITY CLOUDY (CLEAR); UR COLOR AMBER (YELLOW); UR GLUCOSE (Dip) NEGATIVE (NEGATIVE); UR KETONES (Dip) TRACE mg/dL (NEGATIVE); UR LEUKOCYTE ESTERASE (Dip) 1+ Leu/ul (NEGATIVE); UR MUCUS MANY /HPF (NONE SEEN); UR NITRITE (Dip) NEGATIVE (NEGATIVE); UR RBC 5 /HPF (0-5); UR TOTAL PROTEIN (Dip) 3+ mg/dl (NEGATIVE); UR UROBILINOGEN (Dip) NEGATIVE (NEGATIVE); UR WBC 18 /HPF (0-5)
[2017-10-09 13:34] LABS: INR 3.09; PROTIME 32.8 Sec (11.9-14.9); PT RATIO 2.6
[2017-10-09] MEDS ORDERED: ALBUMIN HUMAN 25% 100 ML IV (15:30)
[2017-10-09] MEDS ORDERED: LACTULOSE 30ML CUP PO (17:00)
[2017-10-09 18:15] LABS: FLD MN% 52.7 %; FLD PMN% 47.3 %; FLD RBC 26000 /uL; FLD WBC 218 /cmm
[2017-10-09] MEDS: ALBUMIN HUMAN 25% 100 ML INJ IV ×2 (18:18→22:23)
[2017-10-09 19:21] LABS: FLD CLARITY CLOUDY; FLD COLOR YELLOW; FLD VOLUME 0.5 ml
[2017-10-09 19:21] LABS: FLD TYPE PARACENTHESIS
[2017-10-09] MEDS: CEFTRIAXONE 1 GM/50 ML (PMX) 50 ML IVPB (21:10)
[2017-10-09] MEDS: RIFAXIMIN 550 MG TAB PO (21:10)
[2017-10-10] MEDS: PANTOPRAZOLE IV 80 MG in SOD CHLORIDE 0.9% 100 ML IV ×3 (02:51→19:30)
[2017-10-10] MEDS: SOD CHLORIDE 0.9% 500 ML IV (05:01)
[2017-10-10] MEDS: ALBUMIN HUMAN 25% 100 ML INJ IV (06:24)
[2017-10-10 06:25] LABS: WHITE BLOOD COUNT 10.9 10^3/ul (4.8-10.8)
[2017-10-10 06:25] LABS: ABNORMAL IP MESSAGE 1; HEMATOCRIT 19.6 % (37.0-47.0); MEAN CORPUSCULAR HEMOGLOBIN 32.1 pg (29.0-33.0); MEAN CORPUSCULAR HGB CONC 34.7 g/dl (32.0-37.0); MEAN CORPUSCULAR VOLUME 92.5 fl (82.0-101.0); PLATELET COUNT 107 10^3/UL (140-415); RED BLOOD COUNT 2.12 10^6/ul (4.20-5.40); RED CELL DISTRIBUTION WIDTH 18.8 % (11.5-14.5)
[2017-10-10 06:43] LABS: INR 3.81; PROTIME 38.8 Sec (11.9-14.9)
[2017-10-10 06:51] LABS: POSITIVE DIFF @See below
[2017-10-10 06:53] LABS: ADD MAN DIFF? YES; HEMOGLOBIN 6.8 g/dl (12.0-16.0)
[2017-10-10 07:03] LABS: ALANINE AMINOTRANSFERASE 22 IU/L (13-69); ALBUMIN 3.4 g/dl (3.3-4.9); ALBUMIN/GLOBULIN RATIO 1.21; ALKALINE PHOSPHATASE 211 IU/L (42-121); ANION GAP 31 (8-16); ASPARTATE AMINO TRANSFERASE 28 IU/L (15-46); BILIRUBIN,INDIRECT 0.7 mg/dl (0-1.1); BILIRUBIN,TOTAL 3.3 mg/dl (0.2-1.3); BLOOD UREA NITROGEN 92 mg/dl (7-20); CALCIUM 6.8 mg/dl (8.4-10.2); CHLORIDE 107 mmol/L (97-110); GLUCOSE 120 mg/dl (70-220); MAGNESIUM 1.8 mg/dl (1.7-2.5); PHOSPHORUS 8.3 mg/dl (2.5-4.9); POTASSIUM 4.4 mmol/L (3.5-5.1); SODIUM 141 mmol/L (135-144); TOTAL PROTEIN 6.2 g/dl (6.1-8.1)
[2017-10-10 07:11] LABS: CREATININE 11.15 mg/dl (0.44-1.00)
[2017-10-10 07:15] LABS: CARBON DIOXIDE 7 mmol/L (21-31)
[2017-10-10] MEDS: PHYTONADIONE 10 MG/ML INJ SC (07:34)
[2017-10-10 08:18] LABS: ANISOCYTOSIS 2+ (0-0); BAND NEUTROPHILS #M 0.9 10^3/ul (0.0-0.6); BAND NEUTROPHILS % (M) 9 % (0-4); BASOPHIL #M 0.1 10^3/ul (0.0-0.0); BASOPHILS % (M) 1 % (0-2); BURR CELLS 1+ (0-0); EOSINOPHILS % (M) 11 % (0-7); LYMPHOCYTES #M 0.9 10^3/ul (0.8-2.9); LYMPHOCYTES % (M) 9 % (15-51); MONOCYTE #M 0.1 10^3/ul (0.3-0.9); MONOCYTES % (M) 1 % (0-11); PLATELET ESTIMATE DECREASED; POIKILOCYTOSIS 1+ (0-0); POLYCHROMASIA 1+ (0-0); SEG NEUT #M 7.6 10^3/ul (1.6-7.5); SEGMENTED NEUTROPHILS (M) % 69 % (39-77); SMUDGE%M 24 % (0-0)
[2017-10-10] MEDS: MIDODRINE 5 MG TAB PO ×2 (09:00→17:00)
[2017-10-10] MEDS: RIFAXIMIN 550 MG TAB PO ×3 (09:42→22:29)
[2017-10-10] MEDS: OCTREOTIDE 50 MCG INJ SC ×3 (09:47→21:00)
[2017-10-10 10:24] LABS: AADO2 Arterial 28.3 mmHg (7.0-24.0); Allen Test ACCEPTAB; Arterial Base Excess -17.5 mmol/L (-3.0-3); Arterial Blood Gas Oxygen Sat 96.5 mmHG (95.0-98.0); Arterial COHb 0.3 % (0.0-3.0); Arterial Fraction of Oxyhgb 95.8 % (93.0-99.0); Arterial MetHb 0.4 % (0.0-1.5); Arterial Total Hemglobin 9.5 g/dl (12.0-18.0); MODE ROOM AIR; Site Right Radial
[2017-10-10] MEDS ORDERED: NA BICARBONATE 8.4% 50 ML SYG IV (10:43)
[2017-10-10 12:42] LABS: IMMEDIATE SPIN CROSSMATCH 1 3
[2017-10-10] MEDS: EVAC CONTAINER IV (13:12)
[2017-10-10] MEDS: SODIUM BICARBONATE IV (13:12)
[2017-10-10] MEDS: FLUCONAZOLE 200 MG TAB PO (17:30)
[2017-10-10] MEDS: LACTULOSE 30ML CUP PO (18:00)
[2017-10-10 18:03] LABS: INR 2.38; PT RATIO 2.1
[2017-10-10 18:14] LABS: PROTIME 26.6 Sec (11.9-14.9)
[2017-10-10] MEDS: SODIUM BICARBONATE (IV ADD) 150 MEQ in DEXTROSE 5% 850 ML IV ×2 (19:05→23:20)
[2017-10-10] MEDS: CEFTRIAXONE 1 GM/50 ML (PMX) 50 ML IVPB (20:00)
[2017-10-11] MEDS: morphine 2 MG INJ IV ×2 (04:03→22:24)
[2017-10-11] MEDS: PANTOPRAZOLE IV 80 MG in SOD CHLORIDE 0.9% 100 ML IV ×2 (05:30→13:31)
[2017-10-11] MEDS: LACTULOSE 30ML CUP PO ×2 (06:00)
[2017-10-11] MEDS ORDERED: LORAZEPAM 2 MG INJ IV (06:40)
[2017-10-11 06:54] LABS: ABNORMAL IP MESSAGE 1; HEMATOCRIT 26.2 % (37.0-47.0); HEMOGLOBIN 9.1 g/dl (12.0-16.0); MEAN CORPUSCULAR HEMOGLOBIN 29.6 pg (29.0-33.0); MEAN CORPUSCULAR HGB CONC 34.7 g/dl (32.0-37.0); MEAN CORPUSCULAR VOLUME 85.3 fl (82.0-101.0); PLATELET COUNT 112 10^3/UL (140-415); RED BLOOD COUNT 3.07 10^6/ul (4.20-5.40); RED CELL DISTRIBUTION WIDTH 23.6 % (11.5-14.5)
[2017-10-11 06:54] LABS: WHITE BLOOD COUNT 13.5 10^3/ul (4.8-10.8)
[2017-10-11 07:08] LABS: ADD MAN DIFF? YES; POSITIVE DIFF @See below
[2017-10-11] MEDS ORDERED: LEVOFLOXACIN 750 MG TABLET PO (07:30)
[2017-10-11 07:45] LABS: ALANINE AMINOTRANSFERASE 13 IU/L (13-69); ALBUMIN 3.7 g/dl (3.3-4.9); ALBUMIN/GLOBULIN RATIO 1.08; ALKALINE PHOSPHATASE 230 IU/L (42-121); ANION GAP 31 (8-16); ASPARTATE AMINO TRANSFERASE 28 IU/L (15-46); BILIRUBIN,INDIRECT 1.1 mg/dl (0-1.1); BLOOD UREA NITROGEN 103 mg/dl (7-20); CALCIUM 7.3 mg/dl (8.4-10.2); CARBON DIOXIDE 15 mmol/L (21-31); CHLORIDE 104 mmol/L (97-110); GLUCOSE 174 mg/dl (70-220); MAGNESIUM 1.9 mg/dl (1.7-2.5); POTASSIUM 4.5 mmol/L (3.5-5.1); SODIUM 145 mmol/L (135-144); TOTAL PROTEIN 7.1 g/dl (6.1-8.1)
[2017-10-11 07:53] LABS: CREATININE 12.32 mg/dl (0.44-1.00)
[2017-10-11] MEDS: MIDODRINE 5 MG TAB PO ×2 (09:00→17:00)
[2017-10-11] MEDS: RIFAXIMIN 550 MG TAB PO ×2 (09:00→22:00)
[2017-10-11] MEDS: FLUCONAZOLE 200 MG TAB PO (09:00)
[2017-10-11] MEDS: OCTREOTIDE 50 MCG INJ SC ×3 (09:17→22:00)
[2017-10-11] MEDS: LEVOFLOXACIN 500 MG TAB PO (10:00)
[2017-10-11 10:31] LABS: ANISOCYTOSIS 1+ (0-0); BAND NEUTROPHILS #M 0.8 10^3/ul (0.0-0.6); BAND NEUTROPHILS % (M) 6 % (0-4); BASOPHIL #M 0.1 10^3/ul (0.0-0.0); BASOPHILS % (M) 1 % (0-2); BURR CELLS 2+ (0-0); EOSINOPHILS % (M) 12 % (0-7); GIANT THROMBO% (M) 1 % (0-0); LYMPHOCYTES #M 2.2 10^3/ul (0.8-2.9); LYMPHOCYTES % (M) 17 % (15-51); MONOCYTE #M 0.6 10^3/ul (0.3-0.9); MONOCYTES % (M) 5 % (0-11); PLATELET ESTIMATE DECREASED; POIKILOCYTOSIS 2+ (0-0); POLYCHROMASIA 1+ (0-0); SEG NEUT #M 8.1 10^3/ul (1.6-7.5); SEGMENTED NEUTROPHILS (M) % 59 % (39-77); SMUDGE%M 13 % (0-0)
[2017-10-11] MEDS: LACTULOSE 30ML CUP PR ×2 (13:33→18:29)
[2017-10-11] MEDS ORDERED: VANCOMYCIN IV PER PHARMACY XX (14:00)
[2017-10-11] MEDS ORDERED: CEFEPIME 1GM/50 ML (PMX) 50 ML IVPB (14:00)
[2017-10-11] MEDS: SODIUM BICARBONATE (IV ADD) 150 MEQ in DEXTROSE 5% 850 ML IV (15:51)
[2017-10-11] MEDS: CEFEPIME 1GM/50 ML (PMX) 50 ML IVPB (15:57)
[2017-10-11] MEDS: VANCOMYCIN 1.5 GM in SOD CHLORIDE 0.9% 250 ML IVPB (17:42)
[2017-10-11] MEDS: CASPOFUNGIN 70 MG in SOD CHLORIDE 0.9% 250 ML IVPB (20:30)
[2017-10-11] MEDS: PENTOXIFYLLINE (SR) 400 MG TAB PO (22:00)
[2017-10-12] MEDS: ALBUMIN HUMAN 25% 100 ML IV ×3 (00:20→17:01)
[2017-10-12] MEDS: PANTOPRAZOLE IV 80 MG in SOD CHLORIDE 0.9% 100 ML IV ×2 (01:15→11:50)
[2017-10-12] MEDS: LACTULOSE 30ML CUP PR ×4 (06:39→18:23)
[2017-10-12 07:05] LABS: ALANINE AMINOTRANSFERASE 20 IU/L (13-69); ALBUMIN 3.5 g/dl (3.3-4.9); ALBUMIN/GLOBULIN RATIO 1.06; ALKALINE PHOSPHATASE 195 IU/L (42-121); ANION GAP 28 (8-16); ASPARTATE AMINO TRANSFERASE 41 IU/L (15-46); BILIRUBIN,INDIRECT 1.8 mg/dl (0-1.1); BLOOD UREA NITROGEN 73 mg/dl (7-20); CALCIUM 7.5 mg/dl (8.4-10.2); CARBON DIOXIDE 19 mmol/L (21-31); CHLORIDE 104 mmol/L (97-110); CREATININE 10.27 mg/dl (0.44-1.00); GLUCOSE 119 mg/dl (70-220); POTASSIUM 3.9 mmol/L (3.5-5.1); SODIUM 147 mmol/L (135-144); TOTAL PROTEIN 6.8 g/dl (6.1-8.1)
[2017-10-12 07:54] LABS: INR 2.71; PROTIME 29.5 Sec (11.9-14.9); PT RATIO 2.3
[2017-10-12 08:06] LABS: WHITE BLOOD COUNT 10.4 10^3/ul (4.8-10.8)
[2017-10-12 08:06] LABS: ABNORMAL IP MESSAGE 1; HEMATOCRIT 22.8 % (37.0-47.0); HEMOGLOBIN 8.2 g/dl (12.0-16.0); MEAN CORPUSCULAR HEMOGLOBIN 29.3 pg (29.0-33.0); MEAN CORPUSCULAR VOLUME 81.4 fl (82.0-101.0); MEAN PLATELET VOLUME 10.6 fl (7.4-10.4); PLATELET COUNT 80 10^3/UL (140-415); RED CELL DISTRIBUTION WIDTH 23.5 % (11.5-14.5)
[2017-10-12 08:09] LABS: POSITIVE DIFF @See below
[2017-10-12 08:10] LABS: ADD MAN DIFF? YES
[2017-10-12] MEDS: OCTREOTIDE 50 MCG INJ SC ×3 (08:21→22:08)
[2017-10-12] MEDS: PENTOXIFYLLINE (SR) 400 MG TAB PO ×3 (09:00→22:08)
[2017-10-12] MEDS: RIFAXIMIN 550 MG TAB PO ×2 (09:00→22:08)
[2017-10-12] MEDS: MIDODRINE 5 MG TAB PO ×2 (09:00→17:00)
[2017-10-12] MEDS: DEXTROSE 5% 1,000 ML IV (09:49)
[2017-10-12 13:37] LABS: ANISOCYTOSIS 2+ (0-0); BAND NEUTROPHILS #M 0.1 10^3/ul (0.0-0.6); BAND NEUTROPHILS % (M) 1 % (0-4); BASOPHIL #M 0.1 10^3/ul (0.0-0.0); BASOPHILS % (M) 1 % (0-2); BURR CELLS 1+ (0-0); EOSINOPHILS % (M) 12 % (0-7); HYPOCHROMASIA 1+ (0-0); LYMPHOCYTES #M 0.4 10^3/ul (0.8-2.9); LYMPHOCYTES % (M) 4 % (15-51); MONOCYTE #M 0.5 10^3/ul (0.3-0.9); MONOCYTES % (M) 5 % (0-11); PLATELET ESTIMATE DECREASED; POIKILOCYTOSIS 1+ (0-0); POLYCHROMASIA 1+ (0-0); SEGMENTED NEUTROPHILS (M) % 77 % (39-77); SMUDGE%M 6 % (0-0); TARGET CELLS 2+ (0-0)
[2017-10-12 16:23] LABS: HEPATITIS B SURFACE ANTIGEN NEGATIVE (NEGATIVE)
[2017-10-12] MEDS: CEFEPIME 1GM/50 ML (PMX) 50 ML IVPB (18:15)
[2017-10-12] MEDS: HEPARIN 1000 UNITS/ML 10 ML INJ CATHETER (18:18)
[2017-10-12] MEDS: CASPOFUNGIN 50 MG in SOD CHLORIDE 0.9% 250 ML IVPB (18:58)
[2017-10-13] MEDS: LACTULOSE 30ML CUP PR ×2 (01:07→06:10)
[2017-10-13] MEDS: PANTOPRAZOLE IV 80 MG in SOD CHLORIDE 0.9% 100 ML IV ×3 (01:07→18:27)
[2017-10-13] MEDS: SOD CHLORIDE 0.9% 500 ML IV (02:13)
[2017-10-13] MEDS: ALBUMIN HUMAN 5% 250 ML IV (02:14)
[2017-10-13 04:20] LABS: MODE NASAL CANNULA
[2017-10-13] MEDS: DEXTROSE 5% 1,000 ML IV (04:41)
[2017-10-13 04:48] LABS: AADO2 Arterial 82.3 mmHg (7.0-24.0); Arterial Base Excess -7.4 mmol/L (-3.0-3); Arterial Blood Gas Oxygen Sat 96.5 mmHG (95.0-98.0); Arterial COHb 0.6 % (0.0-3.0); Arterial Fraction of Oxyhgb 95.4 % (93.0-99.0); Arterial HCO3 16.4 mmol/L (22.0-26.0); Arterial MetHb 0.5 % (0.0-1.5); Arterial Total Hemglobin 8.5 g/dl (12.0-18.0); Arterial pCO2 27.1 mmhg (35-45); Site Right Brachial
[2017-10-13] MEDS ORDERED: LEVOFLOXACIN 250 MG TAB PO (06:00)
[2017-10-13 06:34] LABS: ABNORMAL IP MESSAGE 1; HEMATOCRIT 20.5 % (37.0-47.0); HEMOGLOBIN 7.3 g/dl (12.0-16.0); MEAN CORPUSCULAR HEMOGLOBIN 29.7 pg (29.0-33.0); MEAN CORPUSCULAR HGB CONC 35.6 g/dl (32.0-37.0); MEAN CORPUSCULAR VOLUME 83.3 fl (82.0-101.0); MEAN PLATELET VOLUME 10.6 fl (7.4-10.4); PLATELET COUNT 43 10^3/UL (140-415); RED BLOOD COUNT 2.46 10^6/ul (4.20-5.40); RED CELL DISTRIBUTION WIDTH 24.7 % (11.5-14.5)
[2017-10-13 06:41] LABS: ADD MAN DIFF? YES; POSITIVE DIFF @See below
[2017-10-13 06:53] LABS: AMMONIA 43 umol/l (9-30)
[2017-10-13 07:06] LABS: ANION GAP 33 (8-16); BLOOD UREA NITROGEN 51 mg/dl (7-20); CARBON DIOXIDE 15 mmol/L (21-31); CHLORIDE 105 mmol/L (97-110); CREATININE 7.98 mg/dl (0.44-1.00); GLUCOSE 120 mg/dl (70-220); MAGNESIUM 1.8 mg/dl (1.7-2.5); PHOSPHORUS 4.9 mg/dl (2.5-4.9); POTASSIUM 3.8 mmol/L (3.5-5.1); SODIUM 149 mmol/L (135-144)
[2017-10-13] MEDS ORDERED: PHYTONADIONE 1 MG/0.5 ML SYG SC (07:30)
[2017-10-13] MEDS ORDERED: PENDING SANTYL ORDER FOR WOUND CARE XX (08:00)
[2017-10-13] MEDS: PHYTONADIONE 10 MG/ML INJ SC (08:21)
[2017-10-13] MEDS: MIDODRINE 5 MG TAB PO ×2 (08:42→16:47)
[2017-10-13] MEDS: DEXTROSE 5%-0.45% NACL 1,000 ML IV ×2 (08:42→20:52)
[2017-10-13] MEDS: PENTOXIFYLLINE (SR) 400 MG TAB PO ×3 (08:42→20:52)
[2017-10-13] MEDS: RIFAXIMIN 550 MG TAB PO ×2 (08:43→20:52)
[2017-10-13 09:26] LABS: IMMEDIATE SPIN CROSSMATCH 1 2
[2017-10-13] MEDS: OCTREOTIDE 50 MCG INJ SC ×3 (09:30→20:51)
[2017-10-13 09:37] LABS: ANISOCYTOSIS 3+ (0-0); BAND NEUTROPHILS #M 0.2 10^3/ul (0.0-0.6); BAND NEUTROPHILS % (M) 2 % (0-4); EOSINOPHILS % (M) 2 % (0-7); LYMPHOCYTES #M 0.9 10^3/ul (0.8-2.9); LYMPHOCYTES % (M) 8 % (15-51); MICROCYTOSIS 3+ (0-0); MONOCYTE #M 0.3 10^3/ul (0.3-0.9); MONOCYTES % (M) 3 % (0-11); PLATELET ESTIMATE SIG DECREASED; POIKILOCYTOSIS 3+ (0-0); POLYCHROMASIA 3+ (0-0); SEG NEUT #M 10.2 10^3/ul (1.6-7.5); SEGMENTED NEUTROPHILS (M) % 85 % (39-77); SMUDGE%M 9 % (0-0)
[2017-10-13] MEDS: LORAZEPAM 2 MG INJ IV (11:12)
[2017-10-13] MEDS ORDERED: CASPOFUNGIN 35 MG in SOD CHLORIDE 0.9% 250 ML IVPB (11:48)
[2017-10-13] MEDS: LACTULOSE ENEMA 1,000 ML BTL PR ×2 (12:10→17:34)
[2017-10-13] MEDS: CEFEPIME 1GM/50 ML (PMX) 50 ML IVPB (15:16)
[2017-10-13] MEDS: LEVETIRACETAM 1000 MG (PMX) 100 ML IVPB ×2 (16:47→20:51)
[2017-10-13 17:12] LABS: CREATININE, RANDOM URINE 274 mg/dL (20-320); MICROALBUMIN 141.5 mg/dL; MICROALBUMIN/CREATININE RATIO 516 (<30)
[2017-10-13] MEDS: CASPOFUNGIN 35 MG in SOD CHLORIDE 0.9% 250 ML IVPB (18:27)
[2017-10-14] MEDS: LACTULOSE ENEMA 1,000 ML BTL PR ×4 (00:03→18:28)
[2017-10-14] MEDS: PANTOPRAZOLE IV 80 MG in SOD CHLORIDE 0.9% 100 ML IV ×2 (04:09→15:00)
[2017-10-14 05:54] LABS: ADD MAN DIFF? NO
[2017-10-14 06:04] LABS: ABNORMAL IP MESSAGE 1; BASOPHILS % 0.1 % (0.0-2.0); EOSINOPHILS # 0.3 10^3/ul (0.0-0.5); EOSINOPHILS % 2.7 % (0.0-7.0); HEMATOCRIT 18.9 % (37.0-47.0); LYMPHOCYTES # 0.4 10^3/ul (0.8-2.9); LYMPHOCYTES % 3.1 % (15.0-51.0); MEAN CORPUSCULAR HEMOGLOBIN 28.8 pg (29.0-33.0); MEAN CORPUSCULAR HGB CONC 33.9 g/dl (32.0-37.0); MEAN CORPUSCULAR VOLUME 85.1 fl (82.0-101.0); MONOCYTE # 0.5 10^3/ul (0.3-0.9); NEUTROPHILS % 88.6 % (39.0-77.0); RED BLOOD COUNT 2.22 10^6/ul (4.20-5.40); RED CELL DISTRIBUTION WIDTH 25.2 % (11.5-14.5)
[2017-10-14 06:04] LABS: WHITE BLOOD COUNT 12.4 10^3/ul (4.8-10.8)
[2017-10-14 06:47] LABS: AMMONIA 82 umol/l (9-30)
[2017-10-14 06:50] LABS: PLATELET COUNT 57 10^3/UL (140-415)
[2017-10-14 06:51] LABS: POSITIVE DIFF @See below
[2017-10-14 06:52] LABS: HEMOGLOBIN 6.4 g/dl (12.0-16.0)
[2017-10-14 06:53] LABS: ALANINE AMINOTRANSFERASE 12 IU/L (13-69); ALBUMIN 3.2 g/dl (3.3-4.9); ALBUMIN/GLOBULIN RATIO 0.91; ALKALINE PHOSPHATASE 174 IU/L (42-121); ANION GAP 23 (8-16); ASPARTATE AMINO TRANSFERASE 54 IU/L (15-46); BILIRUBIN,INDIRECT 2.1 mg/dl (0-1.1); BILIRUBIN,TOTAL 9.5 mg/dl (0.2-1.3); BLOOD UREA NITROGEN 57 mg/dl (7-20); CALCIUM 7.8 mg/dl (8.4-10.2); CARBON DIOXIDE 19 mmol/L (21-31); CHLORIDE 109 mmol/L (97-110); CREATININE 7.92 mg/dl (0.44-1.00); GLUCOSE 181 mg/dl (70-220); PATH REVIEW? YES; POTASSIUM 5.1 mmol/L (3.5-5.1); SODIUM 146 mmol/L (135-144); TOTAL PROTEIN 6.7 g/dl (6.1-8.1)
[2017-10-14] MEDS: PENTOXIFYLLINE (SR) 400 MG TAB PO ×3 (08:47→21:00)
[2017-10-14] MEDS: LEVETIRACETAM 1000 MG (PMX) 100 ML IVPB ×2 (08:47→21:21)
[2017-10-14] MEDS: MIDODRINE 5 MG TAB PO ×2 (08:47→17:00)
[2017-10-14] MEDS: RIFAXIMIN 550 MG TAB PO ×2 (08:48→21:00)
[2017-10-14] MEDS: OCTREOTIDE 50 MCG INJ SC ×3 (08:48→22:27)
[2017-10-14] MEDS: DEXTROSE 5%-0.45% NACL 1,000 ML IV (15:57)
[2017-10-14] MEDS: CASPOFUNGIN 35 MG in SOD CHLORIDE 0.9% 250 ML IVPB (21:20)
[2017-10-14] MEDS: HEPARIN 1000 UNITS/ML 10 ML INJ CATHETER (23:18)
[2017-10-15] MEDS: LACTULOSE ENEMA 1,000 ML BTL PR ×5 (01:19→23:57)
[2017-10-15] MEDS: PANTOPRAZOLE IV 80 MG in SOD CHLORIDE 0.9% 100 ML IV ×3 (01:20→14:34)
[2017-10-15] MEDS ORDERED: PENDING SANTYL ORDER FOR WOUND CARE XX (04:00)
[2017-10-15 05:30] LABS: AMMONIA 67 umol/l (9-30)
[2017-10-15 07:56] LABS: WHITE BLOOD COUNT 16.7 10^3/ul (4.8-10.8)
[2017-10-15 07:56] LABS: ABNORMAL IP MESSAGE 1; HEMATOCRIT 28.1 % (37.0-47.0); MEAN CORPUSCULAR HEMOGLOBIN 30.8 pg (29.0-33.0); MEAN CORPUSCULAR HGB CONC 35.6 g/dl (32.0-37.0); MEAN CORPUSCULAR VOLUME 86.5 fl (82.0-101.0); RED BLOOD COUNT 3.25 10^6/ul (4.20-5.40); RED CELL DISTRIBUTION WIDTH 24.6 % (11.5-14.5)
[2017-10-15 08:08] LABS: ANION GAP 23 (8-16); BLOOD UREA NITROGEN 43 mg/dl (7-20); CALCIUM 8.4 mg/dl (8.4-10.2); CARBON DIOXIDE 18 mmol/L (21-31); CHLORIDE 106 mmol/L (97-110); CREATININE 6.32 mg/dl (0.44-1.00); GLUCOSE 129 mg/dl (70-220); POTASSIUM 3.5 mmol/L (3.5-5.1); SODIUM 143 mmol/L (135-144)
[2017-10-15 08:13] LABS: ADD MAN DIFF? YES; PLATELET COUNT 15 10^3/UL (140-415); POSITIVE DIFF @See below
[2017-10-15] MEDS: MIDODRINE 5 MG TAB PO ×2 (08:19→15:42)
[2017-10-15] MEDS: RIFAXIMIN 550 MG TAB PO ×2 (08:20→21:00)
[2017-10-15] MEDS: PENTOXIFYLLINE (SR) 400 MG TAB PO ×3 (08:20→21:00)
[2017-10-15] MEDS: OCTREOTIDE 50 MCG INJ SC ×3 (08:50→22:09)
[2017-10-15] MEDS: LEVETIRACETAM 1000 MG (PMX) 100 ML IVPB ×2 (08:50→21:46)
[2017-10-15 10:07] LABS: ANISOCYTOSIS 2+ (0-0); BAND NEUTROPHILS #M 1.1 10^3/ul (0.0-0.6); BAND NEUTROPHILS % (M) 7 % (0-4); BURR CELLS 2+ (0-0); EOSINOPHILS % (M) 10 % (0-7); METAMYELOCYTES #M 0.1 10^3/ul (0.0-0.0); METAMYELOCYTES %M 1 % (0-0); MONOCYTE #M 0.5 10^3/ul (0.3-0.9); MONOCYTES % (M) 3 % (0-11); PLATELET ESTIMATE SIG DECREASED; POIKILOCYTOSIS 2+ (0-0); POLYCHROMASIA 1+ (0-0); SEG NEUT #M 13.4 10^3/ul (1.6-7.5); SEGMENTED NEUTROPHILS (M) % 79 % (39-77); SMUDGE%M 4 % (0-0); TARGET CELLS 1+ (0-0)
[2017-10-15 10:19] LABS: AADO2 Arterial 76.1 mmHg (7.0-24.0); Allen Test ACCEPTAB; Arterial Base Excess -5.3 mmol/L (-3.0-3); Arterial Blood Gas Oxygen Sat 97.1 mmHG (95.0-98.0); Arterial Fraction of Oxyhgb 95.9 % (93.0-99.0); Arterial HCO3 19.3 mmol/L (22.0-26.0); Arterial MetHb 0.2 % (0.0-1.5); Arterial Total Hemglobin 11.6 g/dl (12.0-18.0); Arterial pCO2 34.7 mmhg (35-45); MODE NASAL CANNULA; Site Right Radial
[2017-10-15 14:24] LABS: TYPE AND SCREEN 1
[2017-10-15] MEDS: DEXTROSE 5%-0.45% NACL 1,000 ML IV (14:41)
[2017-10-15] MEDS: BALSAM PERU/CASTOR OIL 60 GM TUBE TOP (21:47)
[2017-10-15] MEDS: CASPOFUNGIN 35 MG in SOD CHLORIDE 0.9% 250 ML IVPB (21:49)
[2017-10-16 05:16] LABS: ABNORMAL IP MESSAGE 1; HEMATOCRIT 30.2 % (37.0-47.0); HEMOGLOBIN 10.4 g/dl (12.0-16.0); MEAN CORPUSCULAR HGB CONC 34.4 g/dl (32.0-37.0); MEAN PLATELET VOLUME 10.4 fl (7.4-10.4); PLATELET COUNT 54 10^3/UL (140-415); RED BLOOD COUNT 3.47 10^6/ul (4.20-5.40); RED CELL DISTRIBUTION WIDTH 25.1 % (11.5-14.5)
[2017-10-16 05:16] LABS: WHITE BLOOD COUNT 15.8 10^3/ul (4.8-10.8)
[2017-10-16 05:22] LABS: ADD MAN DIFF? YES; POSITIVE DIFF @See below
[2017-10-16 05:38] LABS: INR 3.13; PROTIME 33.1 Sec (11.9-14.9); PT RATIO 2.6
[2017-10-16] MEDS: LACTULOSE ENEMA 1,000 ML BTL PR ×4 (05:41→23:35)
[2017-10-16 05:57] LABS: ANION GAP 23 (8-16); BLOOD UREA NITROGEN 46 mg/dl (7-20); CARBON DIOXIDE 19 mmol/L (21-31); CHLORIDE 109 mmol/L (97-110); GLUCOSE 128 mg/dl (70-220); MAGNESIUM 1.9 mg/dl (1.7-2.5); PHOSPHORUS 4.9 mg/dl (2.5-4.9); POTASSIUM 3.7 mmol/L (3.5-5.1); SODIUM 147 mmol/L (135-144)
[2017-10-16 06:09] LABS: CREATININE 6.31 mg/dl (0.44-1.00)
[2017-10-16] MEDS: PANTOPRAZOLE IV 80 MG in SOD CHLORIDE 0.9% 100 ML IV ×2 (06:29→17:27)
[2017-10-16 07:40] LABS: ANISOCYTOSIS 2+ (0-0); BAND NEUTROPHILS #M 1.2 10^3/ul (0.0-0.6); BAND NEUTROPHILS % (M) 8 % (0-4); EOSINOPHILS % (M) 14 % (0-7); HYPOCHROMASIA 1+ (0-0); LYMPHOCYTES #M 0.6 10^3/ul (0.8-2.9); LYMPHOCYTES % (M) 4 % (15-51); MONOCYTE #M 0.6 10^3/ul (0.3-0.9); MONOCYTES % (M) 4 % (0-11); PLATELET ESTIMATE DECREASED; POIKILOCYTOSIS 2+ (0-0); REACTIVE LYMPHOCYTES #M 0.1 10^3/ul (0.0-0.0); REACTIVE LYMPHOCYTES% (M) 1 % (0-0); SEG NEUT #M 11.1 10^3/ul (1.6-7.5); SEGMENTED NEUTROPHILS (M) % 69 % (39-77); SMUDGE%M 10 % (0-0); TARGET CELLS 1+ (0-0)
[2017-10-16] MEDS: MIDODRINE 5 MG TAB PO ×2 (09:00→17:00)
[2017-10-16] MEDS: PENTOXIFYLLINE (SR) 400 MG TAB PO ×3 (09:00→21:00)
[2017-10-16] MEDS: RIFAXIMIN 550 MG TAB PO ×2 (09:00→21:00)
[2017-10-16] MEDS: LEVETIRACETAM 1000 MG (PMX) 100 ML IVPB ×2 (09:03→21:53)
[2017-10-16] MEDS: OCTREOTIDE 50 MCG INJ SC ×3 (10:25→21:54)
[2017-10-16] MEDS: BALSAM PERU/CASTOR OIL 60 GM TUBE TOP ×2 (10:26→21:54)
[2017-10-16] MEDS: DEXTROSE 5%-0.45% NACL 1,000 ML IV (12:58)
[2017-10-16] MEDS: ALBUMIN HUMAN 25% 100 ML IV (21:25)
[2017-10-16] MEDS: CASPOFUNGIN 35 MG in SOD CHLORIDE 0.9% 250 ML IVPB (21:53)
[2017-10-16] MEDS: HEPARIN 1000 UNITS/ML 10 ML INJ CATHETER (22:49)
[2017-10-17] MEDS: LACTULOSE ENEMA 1,000 ML BTL PR ×3 (05:15→18:24)
[2017-10-17 06:25] LABS: ADD MAN DIFF? NO
[2017-10-17 06:28] LABS: ABNORMAL IP MESSAGE 1; EOSINOPHILS % 7.7 % (0.0-7.0); HEMATOCRIT 24.7 % (37.0-47.0); HEMOGLOBIN 8.6 g/dl (12.0-16.0); LYMPHOCYTES % 15.4 % (15.0-51.0); MEAN CORPUSCULAR HEMOGLOBIN 28.4 pg (29.0-33.0); MEAN CORPUSCULAR HGB CONC 34.8 g/dl (32.0-37.0); MEAN CORPUSCULAR VOLUME 81.5 fl (82.0-101.0); MONOCYTES % 7.7 % (0.0-11.0); NEUTROPHIL # 0.1 10^3/ul (1.6-7.5); NEUTROPHILS % 69.2 % (39.0-77.0); RED BLOOD COUNT 3.03 10^6/ul (4.20-5.40); RED CELL DISTRIBUTION WIDTH 23.2 % (11.5-14.5)
[2017-10-17 06:30] LABS: WHITE BLOOD COUNT 0.1 10^3/ul (4.8-10.8)
[2017-10-17 06:31] LABS: POSITIVE DIFF @See below
[2017-10-17 06:32] LABS: PLATELET COUNT 14 10^3/UL (140-415)
[2017-10-17 07:01] LABS: AMMONIA 77 umol/l (9-30)
[2017-10-17 07:49] LABS: ANION GAP 19 (8-16); BLOOD UREA NITROGEN 40 mg/dl (7-20); CALCIUM 9.2 mg/dl (8.4-10.2); CARBON DIOXIDE 19 mmol/L (21-31); CHLORIDE 107 mmol/L (97-110); CREATININE 5.57 mg/dl (0.44-1.00); GLUCOSE 133 mg/dl (70-220); POTASSIUM 3.9 mmol/L (3.5-5.1); SODIUM 141 mmol/L (135-144)
[2017-10-17 08:14] LABS: ADD MAN DIFF? NO
[2017-10-17 08:18] LABS: ABNORMAL IP MESSAGE 1; BASOPHILS % 0.3 % (0.0-2.0); EOSINOPHILS # 0.9 10^3/ul (0.0-0.5); EOSINOPHILS % 6.9 % (0.0-7.0); HEMATOCRIT 27.6 % (37.0-47.0); HEMOGLOBIN 9.5 g/dl (12.0-16.0); LYMPHOCYTES # 1.1 10^3/ul (0.8-2.9); LYMPHOCYTES % 8.9 % (15.0-51.0); MEAN CORPUSCULAR HEMOGLOBIN 28.7 pg (29.0-33.0); MEAN CORPUSCULAR HGB CONC 34.4 g/dl (32.0-37.0); MEAN CORPUSCULAR VOLUME 83.4 fl (82.0-101.0); MEAN PLATELET VOLUME 11.4 fl (7.4-10.4); MONOCYTE # 0.6 10^3/ul (0.3-0.9); MONOCYTES % 4.6 % (0.0-11.0); NEUTROPHIL # 9.8 10^3/ul (1.6-7.5); NEUTROPHILS % 78.5 % (39.0-77.0); RED BLOOD COUNT 3.31 10^6/ul (4.20-5.40); RED CELL DISTRIBUTION WIDTH 23.4 % (11.5-14.5)
[2017-10-17 08:18] LABS: WHITE BLOOD COUNT 12.5 10^3/ul (4.8-10.8)
[2017-10-17 08:25] LABS: PLATELET COUNT 26 10^3/UL (140-415); POSITIVE DIFF @See below
[2017-10-17] MEDS: PANTOPRAZOLE IV 80 MG in SOD CHLORIDE 0.9% 100 ML IV ×2 (08:34→11:30)
[2017-10-17] MEDS: PENTOXIFYLLINE (SR) 400 MG TAB PO ×3 (08:35→20:21)
[2017-10-17] MEDS: LEVETIRACETAM 1000 MG (PMX) 100 ML IVPB ×2 (08:35→20:30)
[2017-10-17] MEDS: RIFAXIMIN 550 MG TAB PO ×2 (08:35→20:20)
[2017-10-17] MEDS: MIDODRINE 5 MG TAB PO ×2 (08:35→17:00)
[2017-10-17] MEDS: BALSAM PERU/CASTOR OIL 60 GM TUBE TOP ×2 (08:36→20:31)
[2017-10-17] MEDS: OCTREOTIDE 50 MCG INJ SC ×3 (08:38→20:30)
[2017-10-17 09:47] LABS: INR 3.86; PROTIME 39.2 Sec (11.9-14.9); PT RATIO 3.1
[2017-10-17] MEDS: DEXTROSE 5%-0.45% NACL 1,000 ML IV (17:15)
[2017-10-17 18:18] LABS: TYPE AND SCREEN 1 1
[2017-10-17] MEDS: SOD CHLORIDE 0.9% 250 ML IV* (18:24)
[2017-10-18] MEDS: LACTULOSE ENEMA 1,000 ML BTL PR ×5 (00:38→23:36)
[2017-10-18] MEDS: ALBUMIN HUMAN 25% 100 ML IV (04:40)
[2017-10-18] MEDS: PANTOPRAZOLE IV 80 MG in SOD CHLORIDE 0.9% 100 ML IV ×3 (06:11→14:21)
[2017-10-18] MEDS: HEPARIN 1000 UNITS/ML 10 ML INJ CATHETER (06:44)
[2017-10-18] MEDS: PENTOXIFYLLINE (SR) 400 MG TAB PO ×3 (09:00→20:22)
[2017-10-18] MEDS: RIFAXIMIN 550 MG TAB PO ×2 (09:00→20:22)
[2017-10-18] MEDS: MIDODRINE 5 MG TAB PO ×2 (09:00→16:20)
[2017-10-18] MEDS: LEVETIRACETAM 1000 MG (PMX) 100 ML IVPB ×2 (09:31→20:22)
[2017-10-18 09:34] LABS: WHITE BLOOD COUNT 10.3 10^3/ul (4.8-10.8)
[2017-10-18 09:34] LABS: ABNORMAL IP MESSAGE 1; HEMATOCRIT 27.5 % (37.0-47.0); HEMOGLOBIN 9.7 g/dl (12.0-16.0); MEAN CORPUSCULAR HEMOGLOBIN 29.1 pg (29.0-33.0); MEAN CORPUSCULAR HGB CONC 35.3 g/dl (32.0-37.0); MEAN CORPUSCULAR VOLUME 82.6 fl (82.0-101.0); RED BLOOD COUNT 3.33 10^6/ul (4.20-5.40); RED CELL DISTRIBUTION WIDTH 23.8 % (11.5-14.5)
[2017-10-18 09:37] LABS: POSITIVE DIFF @See below
[2017-10-18] MEDS: OCTREOTIDE 50 MCG INJ SC ×3 (09:37→20:22)
[2017-10-18] MEDS: BALSAM PERU/CASTOR OIL 60 GM TUBE TOP ×2 (09:38→20:22)
[2017-10-18 09:39] LABS: ADD MAN DIFF? YES; PLATELET COUNT 17 10^3/UL (140-415)
[2017-10-18 09:48] LABS: AMMONIA 47 umol/l (9-30)
[2017-10-18 09:48] LABS: ANION GAP 20 (8-16); BLOOD UREA NITROGEN 31 mg/dl (7-20); CALCIUM 9.5 mg/dl (8.4-10.2); CARBON DIOXIDE 23 mmol/L (21-31); CHLORIDE 104 mmol/L (97-110); CREATININE 4.57 mg/dl (0.44-1.00); GLUCOSE 118 mg/dl (70-220); MAGNESIUM 1.8 mg/dl (1.7-2.5); PHOSPHORUS 3.9 mg/dl (2.5-4.9); POTASSIUM 3.6 mmol/L (3.5-5.1); SODIUM 143 mmol/L (135-144)
[2017-10-18 10:29] LABS: ANISOCYTOSIS 2+ (0-0); BAND NEUTROPHILS #M 0.7 10^3/ul (0.0-0.6); BAND NEUTROPHILS % (M) 7 % (0-4); BURR CELLS 2+ (0-0); EOSINOPHILS % (M) 7 % (0-7); LYMPHOCYTES #M 0.9 10^3/ul (0.8-2.9); LYMPHOCYTES % (M) 9 % (15-51); MONOCYTE #M 0.2 10^3/ul (0.3-0.9); MONOCYTES % (M) 2 % (0-11); PLATELET ESTIMATE SIG DECREASED; POIKILOCYTOSIS 3+ (0-0); POLYCHROMASIA 3+ (0-0); SEG NEUT #M 7.8 10^3/ul (1.6-7.5); SEGMENTED NEUTROPHILS (M) % 75 % (39-77); SMUDGE%M 6 % (0-0)
[2017-10-18] MEDS: SOD CHLORIDE 0.9% 250 ML IV* (13:30)
[2017-10-18 13:57] LABS: INR 3.39; PROTIME 35.3 Sec (11.9-14.9); PT RATIO 2.8
[2017-10-18 14:16] LABS: TYPE AND SCREEN 1
[2017-10-18] MEDS: DEXTROSE 5%-0.45% NACL 1,000 ML IV (15:18)
[2017-10-19] MEDS: PANTOPRAZOLE IV 80 MG in SOD CHLORIDE 0.9% 100 ML IV ×3 (03:58→23:30)
[2017-10-19 05:44] LABS: ABNORMAL IP MESSAGE 1; HEMATOCRIT 25.4 % (37.0-47.0); HEMOGLOBIN 8.8 g/dl (12.0-16.0); MEAN CORPUSCULAR HEMOGLOBIN 29.6 pg (29.0-33.0); MEAN CORPUSCULAR HGB CONC 34.6 g/dl (32.0-37.0); MEAN CORPUSCULAR VOLUME 85.5 fl (82.0-101.0); MEAN PLATELET VOLUME 10.4 fl (7.4-10.4); PLATELET COUNT 48 10^3/UL (140-415); RED BLOOD COUNT 2.97 10^6/ul (4.20-5.40); RED CELL DISTRIBUTION WIDTH 24.3 % (11.5-14.5)
[2017-10-19 05:44] LABS: WHITE BLOOD COUNT 9.7 10^3/ul (4.8-10.8)
[2017-10-19 05:54] LABS: ADD MAN DIFF? YES; POSITIVE DIFF @See below
[2017-10-19 06:06] LABS: AMMONIA 97 umol/l (9-30)
[2017-10-19 06:09] LABS: ANION GAP 20 (8-16); BLOOD UREA NITROGEN 37 mg/dl (7-20); CALCIUM 9.5 mg/dl (8.4-10.2); CARBON DIOXIDE 20 mmol/L (21-31); CHLORIDE 107 mmol/L (97-110); GLUCOSE 119 mg/dl (70-220); POTASSIUM 3.5 mmol/L (3.5-5.1); SODIUM 143 mmol/L (135-144)
[2017-10-19] MEDS: LACTULOSE ENEMA 1,000 ML BTL PR ×3 (06:30→17:33)
[2017-10-19 06:31] LABS: CREATININE 4.64 mg/dl (0.44-1.00)
[2017-10-19 07:58] LABS: ANISOCYTOSIS 2+ (0-0); BAND NEUTROPHILS #M 0.3 10^3/ul (0.0-0.6); BAND NEUTROPHILS % (M) 4 % (0-4); BASOPHIL #M 0.2 10^3/ul (0.0-0.0); BASOPHILS % (M) 3 % (0-2); EOSINOPHILS % (M) 9 % (0-7); HYPOCHROMASIA 1+ (0-0); LYMPHOCYTES #M 0.2 10^3/ul (0.8-2.9); LYMPHOCYTES % (M) 3 % (15-51); MONOCYTE #M 0.1 10^3/ul (0.3-0.9); MONOCYTES % (M) 2 % (0-11); PLATELET ESTIMATE SIG DECREASED; POIKILOCYTOSIS 3+ (0-0); POLYCHROMASIA 3+ (0-0); SEG NEUT #M 7.7 10^3/ul (1.6-7.5); SEGMENTED NEUTROPHILS (M) % 79 % (39-77); SMUDGE%M 6 % (0-0)
[2017-10-19] MEDS: PENTOXIFYLLINE (SR) 400 MG TAB PO ×3 (08:53→21:00)
[2017-10-19] MEDS: MIDODRINE 5 MG TAB PO ×2 (08:53→16:43)
[2017-10-19] MEDS: RIFAXIMIN 550 MG TAB PO ×2 (08:54→21:00)
[2017-10-19] MEDS: OCTREOTIDE 50 MCG INJ SC ×3 (09:00→21:45)
[2017-10-19] MEDS: LEVETIRACETAM 1000 MG (PMX) 100 ML IVPB ×2 (09:00→21:44)
[2017-10-19] MEDS: BALSAM PERU/CASTOR OIL 60 GM TUBE TOP ×2 (09:01→21:45)
[2017-10-19] MEDS ORDERED: LACTULOSE ENEMA 1,000 ML BTL PR (12:00)
[2017-10-19] MEDS: DEXTROSE 5%-0.45% NACL 1,000 ML IV ×2 (15:04→21:45)
[2017-10-20] MEDS: LACTULOSE ENEMA 1,000 ML BTL PR ×4 (01:58→17:19)
[2017-10-20 05:10] LABS: ADD MAN DIFF? NO
[2017-10-20 05:15] LABS: ABNORMAL IP MESSAGE 1; BASOPHIL # 0.1 10^3/ul (0.0-0.1); BASOPHILS % 0.5 % (0.0-2.0); EOSINOPHILS # 0.6 10^3/ul (0.0-0.5); EOSINOPHILS % 6.1 % (0.0-7.0); HEMATOCRIT 24.6 % (37.0-47.0); HEMOGLOBIN 8.5 g/dl (12.0-16.0); LYMPHOCYTES # 1.1 10^3/ul (0.8-2.9); LYMPHOCYTES % 11.3 % (15.0-51.0); MEAN CORPUSCULAR HEMOGLOBIN 28.8 pg (29.0-33.0); MEAN CORPUSCULAR HGB CONC 34.6 g/dl (32.0-37.0); MEAN CORPUSCULAR VOLUME 83.4 fl (82.0-101.0); MONOCYTE # 0.7 10^3/ul (0.3-0.9); MONOCYTES % 7.5 % (0.0-11.0); NEUTROPHIL # 7.3 10^3/ul (1.6-7.5); NEUTROPHILS % 74.1 % (39.0-77.0); RED BLOOD COUNT 2.95 10^6/ul (4.20-5.40); RED CELL DISTRIBUTION WIDTH 23.8 % (11.5-14.5)
[2017-10-20 05:15] LABS: WHITE BLOOD COUNT 9.8 10^3/ul (4.8-10.8)
[2017-10-20] MEDS: PANTOPRAZOLE IV 80 MG in SOD CHLORIDE 0.9% 100 ML IV (05:30)
[2017-10-20 05:31] LABS: ANION GAP 19 (8-16); BLOOD UREA NITROGEN 43 mg/dl (7-20); CALCIUM 9.6 mg/dl (8.4-10.2); CARBON DIOXIDE 20 mmol/L (21-31); CHLORIDE 108 mmol/L (97-110); GLUCOSE 124 mg/dl (70-220); POTASSIUM 3.3 mmol/L (3.5-5.1); SODIUM 144 mmol/L (135-144)
[2017-10-20 05:40] LABS: AMMONIA 111 umol/l (9-30)
[2017-10-20 05:49] LABS: PROTIME 31.2 Sec (11.9-14.9); PT RATIO 2.4
[2017-10-20 05:55] LABS: CREATININE 5.16 mg/dl (0.44-1.00)
[2017-10-20 06:34] LABS: PLATELET COUNT 38 10^3/UL (140-415)
[2017-10-20 06:35] LABS: POSITIVE DIFF @See below
[2017-10-20] MEDS ORDERED: POTASSIUM CHLORIDE 50 ML IVPB (07:00)
[2017-10-20 07:31] LABS: MEAN PLATELET VOLUME 11.6 fl (7.4-10.4)
[2017-10-20] MEDS: PENTOXIFYLLINE (SR) 400 MG TAB PO ×3 (09:00→21:11)
[2017-10-20] MEDS: MIDODRINE 5 MG TAB PO ×2 (09:00→12:37)
[2017-10-20] MEDS: RIFAXIMIN 550 MG TAB PO ×2 (09:00→21:11)
[2017-10-20] MEDS: LEVETIRACETAM 1000 MG (PMX) 100 ML IVPB ×2 (09:15→23:08)
[2017-10-20] MEDS: POTASSIUM CHLORIDE 100 ML IVPB ×2 (09:16→11:20)
[2017-10-20] MEDS: BALSAM PERU/CASTOR OIL 60 GM TUBE TOP ×2 (09:16→23:08)
[2017-10-20] MEDS: HEPARIN 1000 UNITS/ML 10 ML INJ CATHETER (11:52)
[2017-10-20] MEDS: PANTOPRAZOLE 40 MG INJ IV (17:19)
[2017-10-20] MEDS ORDERED: VITAMIN A & D 5 GM OINT PACKET TOP (22:47)
[2017-10-21] MEDS: DEXTROSE 5%-0.45% NACL 1,000 ML IV (01:53)
[2017-10-21] MEDS: LACTULOSE ENEMA 1,000 ML BTL PR ×5 (01:53→17:28)
[2017-10-21] MEDS: PANTOPRAZOLE 40 MG INJ IV ×2 (06:29→17:28)
[2017-10-21 06:44] LABS: ADD MAN DIFF? NO
[2017-10-21 06:51] LABS: ABNORMAL IP MESSAGE 1; HEMATOCRIT 22.4 % (37.0-47.0); HEMOGLOBIN 7.7 g/dl (12.0-16.0); MEAN CORPUSCULAR HEMOGLOBIN 28.3 pg (29.0-33.0); MEAN CORPUSCULAR HGB CONC 34.4 g/dl (32.0-37.0); MEAN CORPUSCULAR VOLUME 82.4 fl (82.0-101.0); RED BLOOD COUNT 2.72 10^6/ul (4.20-5.40); RED CELL DISTRIBUTION WIDTH 23.9 % (11.5-14.5)
[2017-10-21 07:00] LABS: POSITIVE DIFF @See below
[2017-10-21 07:02] LABS: PLATELET COUNT 30 10^3/UL (140-415)
[2017-10-21 07:16] LABS: ANION GAP 15 (8-16); BLOOD UREA NITROGEN 34 mg/dl (7-20); CALCIUM 9.1 mg/dl (8.4-10.2); CARBON DIOXIDE 23 mmol/L (21-31); CHLORIDE 109 mmol/L (97-110); CREATININE 4.25 mg/dl (0.44-1.00); GLUCOSE 125 mg/dl (70-220); MAGNESIUM 1.8 mg/dl (1.7-2.5); PHOSPHORUS 4.4 mg/dl (2.5-4.9); POTASSIUM 3.9 mmol/L (3.5-5.1); SODIUM 143 mmol/L (135-144)
[2017-10-21] MEDS: PENTOXIFYLLINE (SR) 400 MG TAB PO ×3 (09:00→20:48)
[2017-10-21] MEDS: RIFAXIMIN 550 MG TAB PO ×2 (09:00→20:48)
[2017-10-21] MEDS: MIDODRINE 5 MG TAB PO ×3 (09:00→17:00)
[2017-10-21] MEDS: LEVETIRACETAM 1000 MG (PMX) 100 ML IVPB ×2 (09:09→20:46)
[2017-10-21] MEDS: BALSAM PERU/CASTOR OIL 60 GM TUBE TOP ×2 (09:10→20:49)
[2017-10-21 10:04] LABS: ANISOCYTOSIS 2+ (0-0); BAND NEUTROPHILS #M 0.9 10^3/ul (0.0-0.6); BAND NEUTROPHILS % (M) 9 % (0-4); HYPOCHROMASIA 2+ (0-0); LYMPHOCYTES #M 0.3 10^3/ul (0.8-2.9); LYMPHOCYTES % (M) 3 % (15-51); MONOCYTE #M 0.1 10^3/ul (0.3-0.9); MONOCYTES % (M) 1 % (0-11); PLATELET ESTIMATE SIG DECREASED; POIKILOCYTOSIS 3+ (0-0); POLYCHROMASIA 3+ (0-0); REACTIVE LYMPHOCYTES #M 0.3 10^3/ul (0.0-0.0); REACTIVE LYMPHOCYTES% (M) 3 % (0-0); SEG NEUT #M 9.3 10^3/ul (1.6-7.5); SEGMENTED NEUTROPHILS (M) % 84 % (39-77); SMUDGE%M 10 % (0-0)
[2017-10-22] MEDS: LACTULOSE ENEMA 1,000 ML BTL PR ×4 (00:20→17:54)
[2017-10-22] MEDS: PANTOPRAZOLE 40 MG INJ IV ×2 (06:01→17:54)
[2017-10-22 06:17] LABS: ADD MAN DIFF? NO
[2017-10-22 06:23] LABS: ABNORMAL IP MESSAGE 1; BASOPHILS % 0.4 % (0.0-2.0); EOSINOPHILS # 0.2 10^3/ul (0.0-0.5); EOSINOPHILS % 2.1 % (0.0-7.0); HEMATOCRIT 23.1 % (37.0-47.0); LYMPHOCYTES % 9.5 % (15.0-51.0); MEAN CORPUSCULAR HEMOGLOBIN 28.8 pg (29.0-33.0); MEAN CORPUSCULAR HGB CONC 34.6 g/dl (32.0-37.0); MEAN CORPUSCULAR VOLUME 83.1 fl (82.0-101.0); MONOCYTE # 0.9 10^3/ul (0.3-0.9); MONOCYTES % 8.5 % (0.0-11.0); NEUTROPHIL # 8.7 10^3/ul (1.6-7.5); PLATELET COUNT 34 10^3/UL (140-415); RED BLOOD COUNT 2.78 10^6/ul (4.20-5.40); RED CELL DISTRIBUTION WIDTH 23.9 % (11.5-14.5)
[2017-10-22 06:47] LABS: ALANINE AMINOTRANSFERASE 20 IU/L (13-69); ALBUMIN 2.5 g/dl (3.3-4.9); ALBUMIN/GLOBULIN RATIO 0.54; ALKALINE PHOSPHATASE 162 IU/L (42-121); ANION GAP 20 (8-16); ASPARTATE AMINO TRANSFERASE 62 IU/L (15-46); BILIRUBIN,INDIRECT 2.9 mg/dl (0-1.1); BILIRUBIN,TOTAL 18.5 mg/dl (0.2-1.3); BLOOD UREA NITROGEN 44 mg/dl (7-20); CALCIUM 9.2 mg/dl (8.4-10.2); CARBON DIOXIDE 21 mmol/L (21-31); CHLORIDE 106 mmol/L (97-110); GLUCOSE 106 mg/dl (70-220); MAGNESIUM 1.9 mg/dl (1.7-2.5); POTASSIUM 4.3 mmol/L (3.5-5.1); SODIUM 143 mmol/L (135-144); TOTAL PROTEIN 7.1 g/dl (6.1-8.1)
[2017-10-22 06:53] LABS: POSITIVE DIFF @See below
[2017-10-22 07:00] LABS: CREATININE 4.29 mg/dl (0.44-1.00)
[2017-10-22] MEDS: MIDODRINE 5 MG TAB PO ×2 (08:22→17:00)
[2017-10-22] MEDS: RIFAXIMIN 550 MG TAB PO ×2 (08:22→21:00)
[2017-10-22] MEDS: PENTOXIFYLLINE (SR) 400 MG TAB PO ×3 (08:22→21:00)
[2017-10-22] MEDS: ALBUMIN HUMAN 25% 100 ML IV (09:33)
[2017-10-22] MEDS: BALSAM PERU/CASTOR OIL 60 GM TUBE TOP ×2 (10:12→21:26)
[2017-10-22] MEDS: LEVETIRACETAM 1000 MG (PMX) 100 ML IVPB ×2 (11:49→21:24)
[2017-10-22] MEDS: HEPARIN 1000 UNITS/ML 10 ML INJ CATHETER (12:03)
[2017-10-23] MEDS: LACTULOSE ENEMA 1,000 ML BTL PR ×4 (00:33→18:00)
[2017-10-23] MEDS: PANTOPRAZOLE 40 MG INJ IV ×2 (05:21→17:58)
[2017-10-23 06:30] LABS: ADD MAN DIFF? NO
[2017-10-23 06:37] LABS: ABNORMAL IP MESSAGE 1; BASOPHILS % 0.3 % (0.0-2.0); EOSINOPHILS # 0.2 10^3/ul (0.0-0.5); EOSINOPHILS % 1.6 % (0.0-7.0); HEMATOCRIT 20.4 % (37.0-47.0); HEMOGLOBIN 7.1 g/dl (12.0-16.0); LYMPHOCYTES # 1.1 10^3/ul (0.8-2.9); LYMPHOCYTES % 10.9 % (15.0-51.0); MEAN CORPUSCULAR HEMOGLOBIN 28.1 pg (29.0-33.0); MEAN CORPUSCULAR HGB CONC 34.8 g/dl (32.0-37.0); MEAN CORPUSCULAR VOLUME 80.6 fl (82.0-101.0); MONOCYTE # 0.7 10^3/ul (0.3-0.9); MONOCYTES % 7.3 % (0.0-11.0); NEUTROPHIL # 7.7 10^3/ul (1.6-7.5); NEUTROPHILS % 79.3 % (39.0-77.0); RED BLOOD COUNT 2.53 10^6/ul (4.20-5.40); RED CELL DISTRIBUTION WIDTH 23.7 % (11.5-14.5)
[2017-10-23 06:37] LABS: WHITE BLOOD COUNT 9.7 10^3/ul (4.8-10.8)
[2017-10-23 06:46] LABS: POSITIVE DIFF @See below
[2017-10-23 06:47] LABS: PLATELET COUNT 38 10^3/UL (140-415)
[2017-10-23 06:56] LABS: ALANINE AMINOTRANSFERASE 18 IU/L (13-69); ALBUMIN 2.4 g/dl (3.3-4.9); ALBUMIN/GLOBULIN RATIO 0.57; ALKALINE PHOSPHATASE 160 IU/L (42-121); ANION GAP 15 (8-16); ASPARTATE AMINO TRANSFERASE 49 IU/L (15-46); BILIRUBIN,INDIRECT 3.7 mg/dl (0-1.1); BLOOD UREA NITROGEN 36 mg/dl (7-20); CALCIUM 9.1 mg/dl (8.4-10.2); CARBON DIOXIDE 25 mmol/L (21-31); CHLORIDE 107 mmol/L (97-110); GLUCOSE 93 mg/dl (70-220); POTASSIUM 3.9 mmol/L (3.5-5.1); SODIUM 143 mmol/L (135-144); TOTAL PROTEIN 6.6 g/dl (6.1-8.1)
[2017-10-23 07:01] LABS: MAGNESIUM 1.8 mg/dl (1.7-2.5)
[2017-10-23 07:01] LABS: PHOSPHORUS 4.5 mg/dl (2.5-4.9)
[2017-10-23 07:15] LABS: INR 2.29; PROTIME 25.8 Sec (11.9-14.9)
[2017-10-23 07:41] LABS: CREATININE 3.55 mg/dl (0.44-1.00)
[2017-10-23] MEDS: RIFAXIMIN 550 MG TAB PO ×2 (09:00→20:26)
[2017-10-23] MEDS: MIDODRINE 5 MG TAB PO ×2 (09:00→17:00)
[2017-10-23] MEDS: PENTOXIFYLLINE (SR) 400 MG TAB PO ×3 (09:00→20:26)
[2017-10-23] MEDS: LEVETIRACETAM 1000 MG (PMX) 100 ML IVPB ×2 (09:17→20:22)
[2017-10-23] MEDS: BALSAM PERU/CASTOR OIL 60 GM TUBE TOP ×2 (09:54→20:26)
[2017-10-24] MEDS: LACTULOSE ENEMA 1,000 ML BTL PR ×4 (00:05→18:17)
[2017-10-24] MEDS: PANTOPRAZOLE 40 MG INJ IV ×2 (05:19→18:17)
[2017-10-24 06:38] LABS: WHITE BLOOD COUNT 9.2 10^3/ul (4.8-10.8)
[2017-10-24 06:38] LABS: ABNORMAL IP MESSAGE 1; HEMATOCRIT 18.9 % (37.0-47.0); MEAN CORPUSCULAR HEMOGLOBIN 28.8 pg (29.0-33.0); MEAN CORPUSCULAR HGB CONC 35.4 g/dl (32.0-37.0); MEAN CORPUSCULAR VOLUME 81.1 fl (82.0-101.0); PLATELET COUNT 43 10^3/UL (140-415); RED BLOOD COUNT 2.33 10^6/ul (4.20-5.40); RED CELL DISTRIBUTION WIDTH 23.7 % (11.5-14.5)
[2017-10-24 06:42] LABS: HEMOGLOBIN 6.7 g/dl (12.0-16.0); POSITIVE DIFF @See below
[2017-10-24 06:43] LABS: ADD MAN DIFF? YES
[2017-10-24 06:50] LABS: INR 2.29; PROTIME 25.8 Sec (11.9-14.9)
[2017-10-24 07:01] LABS: ANION GAP 20 (8-16); BLOOD UREA NITROGEN 49 mg/dl (7-20); CALCIUM 9.5 mg/dl (8.4-10.2); CARBON DIOXIDE 21 mmol/L (21-31); CHLORIDE 105 mmol/L (97-110); GLUCOSE 97 mg/dl (70-220); MAGNESIUM 1.9 mg/dl (1.7-2.5); PHOSPHORUS 4.9 mg/dl (2.5-4.9); POTASSIUM 3.9 mmol/L (3.5-5.1); SODIUM 142 mmol/L (135-144)
[2017-10-24 07:07] LABS: ANISOCYTOSIS 3+ (0-0); BAND NEUTROPHILS #M 0.5 10^3/ul (0.0-0.6); BAND NEUTROPHILS % (M) 6 % (0-4); BASOPHILS % (M) 1 % (0-2); BURR CELLS 2+ (0-0); EOSINOPHILS % (M) 1 % (0-7); HYPOCHROMASIA 2+ (0-0); LYMPHOCYTES #M 0.3 10^3/ul (0.8-2.9); LYMPHOCYTES % (M) 4 % (15-51); MONOCYTE #M 0.4 10^3/ul (0.3-0.9); MONOCYTES % (M) 5 % (0-11); PLATELET ESTIMATE DECREASED; POIKILOCYTOSIS 2+ (0-0); POLYCHROMASIA 3+ (0-0); SEG NEUT #M 7.7 10^3/ul (1.6-7.5); SEGMENTED NEUTROPHILS (M) % 83 % (39-77)
[2017-10-24 07:31] LABS: ALANINE AMINOTRANSFERASE 24 IU/L (13-69); ALKALINE PHOSPHATASE 130 IU/L (42-121); ASPARTATE AMINO TRANSFERASE 56 IU/L (15-46)
[2017-10-24 07:32] LABS: ALBUMIN 2.4 g/dl (3.3-4.9); BILIRUBIN,INDIRECT 3.2 mg/dl (0-1.1); TOTAL PROTEIN 6.6 g/dl (6.1-8.1)
[2017-10-24 07:33] LABS: BILIRUBIN,TOTAL 18.7 mg/dl (0.2-1.3)
[2017-10-24] MEDS: RIFAXIMIN 550 MG TAB PO ×2 (09:00→20:25)
[2017-10-24] MEDS: PENTOXIFYLLINE (SR) 400 MG TAB PO ×3 (09:00→20:24)
[2017-10-24] MEDS: MIDODRINE 5 MG TAB PO ×2 (09:00→17:00)
[2017-10-24] MEDS: BALSAM PERU/CASTOR OIL 60 GM TUBE TOP ×2 (09:23→20:25)
[2017-10-24] MEDS: LEVETIRACETAM 1000 MG (PMX) 100 ML IVPB ×2 (09:25→20:24)
[2017-10-24] MEDS: SOD CHLORIDE 0.9% 500 ML IV ×2 (10:03→18:23)
[2017-10-24 11:53] LABS: IMMEDIATE SPIN CROSSMATCH 1 1
[2017-10-24 23:58] LABS: HEMOGLOBIN 8.7 g/dl (12.0-16.0)
[2017-10-25] MEDS: LACTULOSE ENEMA 1,000 ML BTL PR ×5 (01:57→23:16)
[2017-10-25] MEDS: PANTOPRAZOLE 40 MG INJ IV ×2 (05:39→17:57)
[2017-10-25 06:17] LABS: ABNORMAL IP MESSAGE 1; HEMATOCRIT 24.9 % (37.0-47.0); HEMOGLOBIN 8.6 g/dl (12.0-16.0); MEAN CORPUSCULAR HEMOGLOBIN 28.6 pg (29.0-33.0); MEAN CORPUSCULAR HGB CONC 34.5 g/dl (32.0-37.0); MEAN CORPUSCULAR VOLUME 82.7 fl (82.0-101.0); RED BLOOD COUNT 3.01 10^6/ul (4.20-5.40); RED CELL DISTRIBUTION WIDTH 21.7 % (11.5-14.5)
[2017-10-25 06:17] LABS: WHITE BLOOD COUNT 7.5 10^3/ul (4.8-10.8)
[2017-10-25 06:19] LABS: ADD MAN DIFF? YES; PLATELET COUNT 32 10^3/UL (140-415); POSITIVE DIFF @See below
[2017-10-25 06:38] LABS: ALANINE AMINOTRANSFERASE 29 IU/L (13-69); ALBUMIN 2.5 g/dl (3.3-4.9); ALBUMIN/GLOBULIN RATIO 0.58; ALKALINE PHOSPHATASE 161 IU/L (42-121); ANION GAP 17 (8-16); ASPARTATE AMINO TRANSFERASE 74 IU/L (15-46); BILIRUBIN,INDIRECT 3.4 mg/dl (0-1.1); BILIRUBIN,TOTAL 20.9 mg/dl (0.2-1.3); BLOOD UREA NITROGEN 56 mg/dl (7-20); CALCIUM 9.6 mg/dl (8.4-10.2); CARBON DIOXIDE 21 mmol/L (21-31); CHLORIDE 112 mmol/L (97-110); GLUCOSE 98 mg/dl (70-220); MAGNESIUM 1.9 mg/dl (1.7-2.5); PHOSPHORUS 4.9 mg/dl (2.5-4.9); POTASSIUM 4.2 mmol/L (3.5-5.1); SODIUM 146 mmol/L (135-144); TOTAL PROTEIN 6.8 g/dl (6.1-8.1)
[2017-10-25 06:43] LABS: INR 2.02; PROTIME 23.3 Sec (11.9-14.9); PT RATIO 1.8
[2017-10-25 06:44] LABS: CREATININE 4.13 mg/dl (0.44-1.00)
[2017-10-25 07:12] LABS: ANISOCYTOSIS 1+ (0-0); BAND NEUTROPHILS #M 0.3 10^3/ul (0.0-0.6); BAND NEUTROPHILS % (M) 4 % (0-4); BURR CELLS 1+ (0-0); EOSINOPHILS % (M) 3 % (0-7); ERYTHROBLAST% (NRBC) (M) 1 % (0-0); HYPOCHROMASIA 1+ (0-0); LYMPHOCYTES #M 0.6 10^3/ul (0.8-2.9); LYMPHOCYTES % (M) 9 % (15-51); MONOCYTE #M 0.1 10^3/ul (0.3-0.9); MONOCYTES % (M) 2 % (0-11); PLATELET ESTIMATE DECREASED; POIKILOCYTOSIS 2+ (0-0); POLYCHROMASIA 3+ (0-0); REACTIVE LYMPHOCYTES #M 0.3 10^3/ul (0.0-0.0); REACTIVE LYMPHOCYTES% (M) 4 % (0-0); SEG NEUT #M 5.9 10^3/ul (1.6-7.5); SEGMENTED NEUTROPHILS (M) % 78 % (39-77); SMUDGE%M 6 % (0-0)
[2017-10-25] MEDS: LEVETIRACETAM 1000 MG (PMX) 100 ML IVPB ×2 (08:52→21:41)
[2017-10-25] MEDS: RIFAXIMIN 550 MG TAB PO ×2 (09:00→21:00)
[2017-10-25] MEDS: MIDODRINE 5 MG TAB PO ×2 (09:00→17:00)
[2017-10-25] MEDS: PENTOXIFYLLINE (SR) 400 MG TAB PO ×3 (09:00→21:00)
[2017-10-25] MEDS: BALSAM PERU/CASTOR OIL 60 GM TUBE TOP ×2 (09:24→23:37)
[2017-10-25] MEDS: DEXTROSE 5%-0.45% NACL 1,000 ML IV (09:24)
[2017-10-25] MEDS: SOD CHLORIDE 0.9% 500 ML IV (22:34)
[2017-10-26] MEDS: SOD CHLORIDE 0.9% 500 ML IV (00:47)
[2017-10-26] MEDS: ALBUMIN HUMAN 25% 50 ML IV ×2 (05:00→05:05)
[2017-10-26] MEDS: DEXTROSE 5%-0.45% NACL 1,000 ML IV ×2 (05:00→20:25)
[2017-10-26 06:08] LABS: WHITE BLOOD COUNT 6.4 10^3/ul (4.8-10.8)
[2017-10-26 06:08] LABS: ABNORMAL IP MESSAGE 1; HEMATOCRIT 22.2 % (37.0-47.0); HEMOGLOBIN 7.9 g/dl (12.0-16.0); MEAN CORPUSCULAR HEMOGLOBIN 28.9 pg (29.0-33.0); MEAN CORPUSCULAR HGB CONC 35.6 g/dl (32.0-37.0); MEAN CORPUSCULAR VOLUME 81.3 fl (82.0-101.0); RED BLOOD COUNT 2.73 10^6/ul (4.20-5.40); RED CELL DISTRIBUTION WIDTH 21.4 % (11.5-14.5)
[2017-10-26] MEDS: PANTOPRAZOLE 40 MG INJ IV ×2 (06:14→18:32)
[2017-10-26] MEDS: LACTULOSE ENEMA 1,000 ML BTL PR ×3 (06:14→18:32)
[2017-10-26 06:15] LABS: AMMONIA 23 umol/l (9-30)
[2017-10-26 06:23] LABS: ALANINE AMINOTRANSFERASE 27 IU/L (13-69); ALBUMIN 2.3 g/dl (3.3-4.9); ALKALINE PHOSPHATASE 155 IU/L (42-121); ANION GAP 18 (8-16); ASPARTATE AMINO TRANSFERASE 66 IU/L (15-46); BILIRUBIN,INDIRECT 3.2 mg/dl (0-1.1); BILIRUBIN,TOTAL 20.7 mg/dl (0.2-1.3); BLOOD UREA NITROGEN 58 mg/dl (7-20); CALCIUM 9.4 mg/dl (8.4-10.2); CARBON DIOXIDE 21 mmol/L (21-31); CHLORIDE 112 mmol/L (97-110); GLUCOSE 116 mg/dl (70-220); MAGNESIUM 1.8 mg/dl (1.7-2.5); POTASSIUM 3.7 mmol/L (3.5-5.1); SODIUM 147 mmol/L (135-144); TOTAL PROTEIN 6.2 g/dl (6.1-8.1)
[2017-10-26 06:24] LABS: PLATELET COUNT 31 10^3/UL (140-415)
[2017-10-26 06:25] LABS: ADD MAN DIFF? YES; POSITIVE DIFF @See below
[2017-10-26 06:32] LABS: CREATININE 4.27 mg/dl (0.44-1.00)
[2017-10-26 06:41] LABS: INR 2.34; PROTIME 26.3 Sec (11.9-14.9); PT RATIO 2.1
[2017-10-26 07:23] LABS: ACANTHOCYTES 1+ (0-0); ANISOCYTOSIS 2+ (0-0); BAND NEUTROPHILS #M 0.2 10^3/ul (0.0-0.6); BAND NEUTROPHILS % (M) 4 % (0-4); BURR CELLS 1+ (0-0); EOSINOPHILS % (M) 2 % (0-7); GIANT THROMBO% (M) 1 % (0-0); HYPOCHROMASIA 2+ (0-0); LYMPHOCYTES #M 0.4 10^3/ul (0.8-2.9); LYMPHOCYTES % (M) 7 % (15-51); MONOCYTE #M 0.1 10^3/ul (0.3-0.9); MONOCYTES % (M) 2 % (0-11); OVALOCYTES 1+ (0-0); PLATELET ESTIMATE SIG DECREASED; POIKILOCYTOSIS 2+ (0-0); POLYCHROMASIA 1+ (0-0); SCHISTOCYTES 1+ (0-0); SEG NEUT #M 5.4 10^3/ul (1.6-7.5); SEGMENTED NEUTROPHILS (M) % 84 % (39-77); SMUDGE%M 3 % (0-0); TARGET CELLS 2+ (0-0)
[2017-10-26] MEDS: RIFAXIMIN 550 MG TAB PO ×2 (09:00→20:28)
[2017-10-26] MEDS: MIDODRINE 5 MG TAB PO ×2 (09:00→17:00)
[2017-10-26] MEDS: PENTOXIFYLLINE (SR) 400 MG TAB PO ×3 (09:00→20:28)
[2017-10-26] MEDS: LEVETIRACETAM 1000 MG (PMX) 100 ML IVPB ×2 (09:20→20:27)
[2017-10-26] MEDS: BALSAM PERU/CASTOR OIL 60 GM TUBE TOP ×2 (09:21→20:28)
[2017-10-27] MEDS: DEXTROSE 5%-0.45% NACL 1,000 ML IV ×3 (00:16→20:12)
[2017-10-27] MEDS: LACTULOSE ENEMA 1,000 ML BTL PR ×4 (00:16→18:25)
[2017-10-27] MEDS: PANTOPRAZOLE 40 MG INJ IV ×2 (05:37→18:27)
[2017-10-27 06:49] LABS: ABNORMAL IP MESSAGE 1; HEMATOCRIT 19.6 % (37.0-47.0); HEMOGLOBIN 7.1 g/dl (12.0-16.0); MEAN CORPUSCULAR HEMOGLOBIN 29.8 pg (29.0-33.0); MEAN CORPUSCULAR HGB CONC 36.2 g/dl (32.0-37.0); MEAN CORPUSCULAR VOLUME 82.4 fl (82.0-101.0); NUCLEATED RED BLOOD CELLS% 0.9 /100WBC (0.0-0.0); RED BLOOD COUNT 2.38 10^6/ul (4.20-5.40)
[2017-10-27 06:49] LABS: WHITE BLOOD COUNT 6.9 10^3/ul (4.8-10.8)
[2017-10-27 06:58] LABS: PLATELET COUNT 18 10^3/UL (140-415); POSITIVE DIFF @See below
[2017-10-27 06:59] LABS: ADD MAN DIFF? YES
[2017-10-27 07:22] LABS: ANION GAP 20 (8-16); BLOOD UREA NITROGEN 63 mg/dl (7-20); CALCIUM 9.1 mg/dl (8.4-10.2); CARBON DIOXIDE 16 mmol/L (21-31); CHLORIDE 111 mmol/L (97-110); GLUCOSE 131 mg/dl (70-220); MAGNESIUM 1.9 mg/dl (1.7-2.5); PHOSPHORUS 5.8 mg/dl (2.5-4.9); POTASSIUM 4.8 mmol/L (3.5-5.1); SODIUM 142 mmol/L (135-144)
[2017-10-27 07:33] LABS: CREATININE 4.15 mg/dl (0.44-1.00)
[2017-10-27] MEDS: RIFAXIMIN 550 MG TAB PO ×2 (07:36→20:12)
[2017-10-27] MEDS: PENTOXIFYLLINE (SR) 400 MG TAB PO ×3 (07:36→20:12)
[2017-10-27] MEDS: MIDODRINE 5 MG TAB PO ×2 (07:36→15:44)
[2017-10-27] MEDS: LEVETIRACETAM 1000 MG (PMX) 100 ML IVPB ×3 (09:54→23:41)
[2017-10-27] MEDS: BALSAM PERU/CASTOR OIL 60 GM TUBE TOP ×2 (10:07→23:22)
[2017-10-27 10:33] LABS: ANISOCYTOSIS 3+ (0-0); BAND NEUTROPHILS #M 0.5 10^3/ul (0.0-0.6); BAND NEUTROPHILS % (M) 8 % (0-4); BASOPHIL #M 0.2 10^3/ul (0.0-0.0); BASOPHILS % (M) 3 % (0-2); EOSINOPHILS % (M) 1 % (0-7); GIANT THROMBO% (M) 1 % (0-0); LYMPHOCYTES #M 0.8 10^3/ul (0.8-2.9); LYMPHOCYTES % (M) 12 % (15-51); MONOCYTE #M 0.1 10^3/ul (0.3-0.9); MONOCYTES % (M) 2 % (0-11); PLATELET ESTIMATE SIG DECREASED; POIKILOCYTOSIS 3+ (0-0); POLYCHROMASIA 3+ (0-0); REACTIVE LYMPHOCYTES% (M) 1 % (0-0); SEG NEUT #M 5.1 10^3/ul (1.6-7.5); SEGMENTED NEUTROPHILS (M) % 74 % (39-77); SMUDGE%M 4 % (0-0)
[2017-10-27 12:47] LABS: HEPATITIS B SURFACE ANTIBODY POSITIVE (NEGATIVE)
[2017-10-27] MEDS ORDERED: SOD CHLORIDE 0.9% 250 ML IV* (14:43)
[2017-10-27] MEDS: SOD CHLORIDE 0.9% 250 ML IV (15:44)
[2017-10-27 19:59] LABS: IMMEDIATE SPIN CROSSMATCH 1 2
[2017-10-28] MEDS: LACTULOSE ENEMA 1,000 ML BTL PR ×4 (00:47→18:12)
[2017-10-28] MEDS: ALBUMIN HUMAN 25% 100 ML IV (04:19)
[2017-10-28] MEDS: PANTOPRAZOLE 40 MG INJ IV ×2 (05:50→18:12)
[2017-10-28 06:26] LABS: WHITE BLOOD COUNT 7.4 10^3/ul (4.8-10.8)
[2017-10-28 06:26] LABS: ABNORMAL IP MESSAGE 1; HEMATOCRIT 28.4 % (37.0-47.0); HEMOGLOBIN 10.1 g/dl (12.0-16.0); MEAN CORPUSCULAR HEMOGLOBIN 28.9 pg (29.0-33.0); MEAN CORPUSCULAR HGB CONC 35.6 g/dl (32.0-37.0); MEAN CORPUSCULAR VOLUME 81.1 fl (82.0-101.0); RED CELL DISTRIBUTION WIDTH 18.8 % (11.5-14.5)
[2017-10-28 06:43] LABS: ADD MAN DIFF? YES; ANION GAP 19 (8-16); BLOOD UREA NITROGEN 65 mg/dl (7-20); CALCIUM 9.2 mg/dl (8.4-10.2); CARBON DIOXIDE 17 mmol/L (21-31); CHLORIDE 113 mmol/L (97-110); GLUCOSE 100 mg/dl (70-220); PLATELET COUNT 19 10^3/UL (140-415); POSITIVE DIFF @See below; POTASSIUM 4.3 mmol/L (3.5-5.1); SODIUM 145 mmol/L (135-144)
[2017-10-28 06:51] LABS: CREATININE 4.47 mg/dl (0.44-1.00)
[2017-10-28] MEDS: MIDODRINE 5 MG TAB PO ×2 (08:07→17:00)
[2017-10-28] MEDS: PENTOXIFYLLINE (SR) 400 MG TAB PO ×3 (08:07→20:48)
[2017-10-28] MEDS: RIFAXIMIN 550 MG TAB PO ×2 (08:08→20:48)
[2017-10-28 08:49] LABS: ANISOCYTOSIS 2+ (0-0); BAND NEUTROPHILS #M 0.8 10^3/ul (0.0-0.6); BAND NEUTROPHILS % (M) 12 % (0-4); LYMPHOCYTES #M 0.5 10^3/ul (0.8-2.9); LYMPHOCYTES % (M) 7 % (15-51); MONOCYTE #M 0.3 10^3/ul (0.3-0.9); MONOCYTES % (M) 5 % (0-11); PLATELET ESTIMATE SIG DECREASED; POIKILOCYTOSIS 3+ (0-0); POLYCHROMASIA 3+ (0-0); SEG NEUT #M 5.7 10^3/ul (1.6-7.5); SEGMENTED NEUTROPHILS (M) % 76 % (39-77); SMUDGE%M 8 % (0-0)
[2017-10-28] MEDS: LEVETIRACETAM 1000 MG (PMX) 100 ML IVPB (09:17)
[2017-10-28] MEDS: DEXTROSE 5% 1,000 ML IV (09:17)
[2017-10-28] MEDS: BALSAM PERU/CASTOR OIL 60 GM TUBE TOP (09:34)
[2017-10-28 17:38] LABS: HEPATITIS B SURFACE ANTIGEN NEGATIVE (NEGATIVE)
[2017-10-28 17:55] LABS: HEPATITIS C VIRAL ANTIBODY NEGATIVE (NEGATIVE)
[2017-10-28 18:31] LABS: HIV 1&2 ANTIBODY NEGATIVE (NEGATIVE)
[2017-10-28] MEDS ORDERED: SOD CHLORIDE 0.9% 250 ML IV (21:34)
[2017-10-28] MEDS ORDERED: EPINEPHrine 0.1 MG/ML SYG (21:50)
[2017-10-29] MEDS ORDERED: LITHIUM CARBONATE 150 MG CAP PO (09:00)
[2017-10-29] MEDS ORDERED: METOPROLOL 25 MG TAB PO (09:00)
[2017-10-29] MEDS ORDERED: MIRTAZAPINE 15 MG TAB PO (21:00)
== END 2017-10-29 02:19 | disposition expired | DRG 871 ==
LOC: ICU 10-13 03:22 → MS2 10-20 21:11 → ICU 10-28 21:47 → TEL 10-10 22:40 → E/R 09:22 → MS2 10-09 17:22 → TEL 12:00 → MS2 10-09 17:34 → TEL 18:11
PROC: 30233K1 Transfusion of Nonautologous Frozen Plasma into Peripheral Vein, Percutaneous Approach (ICD-10-PCS; 2017-10-08)
PROC: 30233N1 Transfusion of Nonautologous Red Blood Cells into Peripheral Vein, Percutaneous Approach (ICD-10-PCS; 2017-10-08)
PROC: 30233R1 Transfusion of Nonautologous Platelets into Peripheral Vein, Percutaneous Approach (ICD-10-PCS; 2017-10-08)
PROC: 06HY33Z Insertion of Infusion Device into Lower Vein, Percutaneous Approach (ICD-10-PCS; principal; 2017-10-11)
PROC: 5A1D70Z Performance of Urinary Filtration, Intermittent, Less than 6 Hours Per Day (ICD-10-PCS; 2017-10-12)
DX: A41.9 Sepsis, unspecified organism (principal); R65.21 Severe sepsis with septic shock; K72.00 Acute and subacute hepatic failure without coma; N17.0 Acute kidney failure with tubular necrosis; K92.1 Melena; D68.9 Coagulation defect, unspecified; E87.1 Hypo-osmolality and hyponatremia; B37.49 Other urogenital candidiasis; N39.0 Urinary tract infection, site not specified; D64.9 Anemia, unspecified; F10.10 Alcohol abuse, uncomplicated; Z66 Do not resuscitate; I46.9 Cardiac arrest, cause unspecified; D72.829 Elevated white blood cell count, unspecified; K70.11 Alcoholic hepatitis with ascites; D69.6 Thrombocytopenia, unspecified; R34 Anuria and oliguria; B96.89 Other specified bacterial agents as the cause of diseases classified elsewhere; R56.9 Unspecified convulsions; I95.9 Hypotension, unspecified
CPT/HCPCS: 36430; 36600; 71045; 74176; 76775; 78278; 80048; 80053; 80076; 80178; 80306; 81001; 81003; 82043; 82140; 82540; 82803; 82962; 82977; 83540; 83690; 83735; 84100; 84155; 84300; 84484; 84703; 85014; 85018; 85025; 85610; 85730; 86644; 86703; 86706; 86803; 86850; 86900; 86901; 86920; 87070; 87081; 87086; 87340; 89051; 90935; 93005; 93971; 99291-25